=== PATIENT | male | born 1945 | race Caucasian/White ===

== ENCOUNTER → 2017-10-06 | Emergency (ER) | payer MEDICARE ==
[~2017-10-06] MED LIST: Acetaminophen 325 MG TAB ONE; Azithromycin 250 MG TAB ONE; Benzonatate 100 MG CAP ONE; Furosemide 40 MG/4 ML VIAL ONE; HYDROcodone/Acetaminophen 5/325 mg Tablet ONE
--- NOTE | 2017-10-06 18:48 | RAD ---
PORTABLE UPRIGHT FRONTAL CHEST RADIOGRAPH 10/06/17 COMPARISON: 08/09/14 HISTORY: Chest pain and dyspnea. FINDINGS: There is prominence of the cardiac silhouette. There is mild pulmonary vascular prominence. No pneumo thorax, pleural fluid, focal consolidation or alveolar edema. IMPRESSION: No focal consolidation or alveolar edema. POS: [facility]
[2017-10-06 18:52] LABS: Band 5 % (5-11); Eosinophils 2 % (0-10); Hemoglobin 15.8 g/dL (14.0-18.0); Lymphocytes 8 % (21-51); MDiff Complete? YES; Mean Corpuscular HGB CONC 31.9 g/dL (32.0-36.0); Mean Corpuscular Hemoglobin 28.5 pg (27.0-31.0); Mean Corpuscular Volume 89.1 fl (80.0-94.0); Mean Platelet Volume 5.7 fL (7.4-10.4); Monocytes 6 % (0-10); Neutrophil 79 % (42-75); PLT Morphology Comment Appears Adequate; Platelet Count 301 thou/uL (130-400); RBC Distribution Width 13.6 % (11.5-14.5); Red Blood Cell (RBC) Count 5.56 mill/uL (4.70-6.10); White Blood Cell (WBC) Count 17.4 thou/uL (4.8-10.8)
[2017-10-06 18:58] LABS: ALT (SGPT) 12 U/L (8-55); AST (SGOT) 20 U/L (5-34); Albumin 3.8 g/dL (3.4-4.8); Alkaline Phosphatase 69 U/L (40-150); Anion Gap 14 mmol/L (10-20); BUN (Urea Nitrogen) 20 mg/dL (8.4-25.7); Bilirubin, Total 0.8 mg/dL (0.2-1.2); Calc. Creatinine Clearance 0 mL/min (70-130); Calcium 10.3 mg/dL (7.8-10.44); Carbon Dioxide 28 mmol/L (23-31); Chloride 102 mmol/L (98-107); Estimated GFR-MDRD 61; Glucose 120 mg/dL (83-110); Magnesium 2.1 mg/dL (1.6-2.6); Potassium 4.1 mmol/L (3.5-5.1); Protein, Total 6.8 g/dL (5.8-8.1); Sodium 140 mmol/L (136-145)
[2017-10-06 19:00] LABS: CKMB 1.4 ng/mL (0-6.6); Troponin I Less than 0.010 ng/mL (< 0.028)
[2017-10-06 19:48] LABS: Bilirubin Negative (Negative); Blood, Urine Trace (Negative); Glucose, Urine (Dipstick) Negative (Negative); Leukocyte Negative (Negative); Nitrite Negative (Negative); Protein, Urine (Dipstick) Negative (Neg-Trace); Specific Gravity, Urine 1.015 (1.005-1.030)
[2017-10-06 19:49] LABS: Bacteria/HPF Rare-Few HPF (None Seen); Clarity Hazy (Clear); RBC/HPF 0-3 HPF (0-3); Squamous Epithelial 0-3 HPF (0-3); WBC/HPF None Seen HPF (0-3)
--- NOTE | 2017-10-06 20:21 | RAD ---
FRONTAL AND LATERAL IMAGING CHEST 10/06/17 COMPARISON: 12/10/09. HISTORY: Dyspnea. FINDINGS: Cardiac silhouette is prominent. No pneumothorax, pleural fluid, lobar consolidation or alveolar tyrell a. Mild increased interstitial density noted. IMPRESSION: Stable appearance of the chest as described above. POS: [facility]
== END ==
LOC: MADERS 18:00
DX: J06.9 Acute upper respiratory infection, unspecified (principal); I48.91 Unspecified atrial fibrillation; E78.5 Hyperlipidemia, unspecified; I11.0 Hypertensive heart disease with heart failure; I50.9 Heart failure, unspecified; M10.9 Gout, unspecified; I25.10 Atherosclerotic heart disease of native coronary artery without angina pectoris; Z79.899 Other long term (current) drug therapy; Z79.01 Long term (current) use of anticoagulants
CPT/HCPCS: 36415; 71045; 71046; 80053; 81003; 81015; 82553; 83605; 83735; 83880; 84484; 85025; 85730; 87040; 87086; 93005; 96374; J1940

== ENCOUNTER 2019-02-13 18:14 | Inpatient (IN) | payer MEDICARE ==
[2019-02-13] MEDS ORDERED: Acetaminophen 325 MG TAB PO PRN (20:44)
[2019-02-13] MEDS ORDERED: Nitroglycerin 0.4 MG TAB (25 Tab Bottle) SL PRN (20:48)
[2019-02-13] MEDS ORDERED: Albuterol Sulfate 2.5 mg/3 ml Neb NEB PRN (20:53)
[2019-02-13] MEDS ORDERED: Nystatin Powder 15 GM BOT TOP PRN (20:59)
[2019-02-13] MEDS ORDERED: Furosemide 40 MG TAB PO SCH (21:00)
[2019-02-13] MEDS: Doxycycline 100 MG CAP PO SCH (21:35)
[2019-02-13] MEDS: traMADol HCl 50 MG TAB PO PRN (21:35)
[2019-02-13] MEDS: Lisinopril 10 MG TAB PO SCH (21:35)
[2019-02-13] MEDS: Hydrochlorothiazide 25 MG TAB PO SCH (21:36)
[2019-02-13] MEDS: Carvedilol 6.25 MG TAB PO SCH (21:37)
[2019-02-14 06:47] LABS: #Basophils 0.1 thou/uL (0.0-0.2); #Eosinphils 0.1 thou/uL (0.0-0.7); #Lymphocytes 1.5 thou/uL (1.20-3.40); #Monocytes 0.5 thou/uL (0.11-0.59); %Basophils 0.7 % (0.0-1.0); %Eosinophils 0.7 % (0.0-10.0); %Lymphocytes 16.8 % (21.0-51.0); %Monocytes 5.9 % (0.0-10.0); %Neutrophils 75.9 % (42.0-75.0); Hemoglobin 12.3 g/dL (14.0-18.0); INR-International Normal Ratio 1.9; Mean Corpuscular HGB CONC 32.3 g/dL (32.0-36.0); Mean Corpuscular Hemoglobin 27.8 pg (27.0-31.0); Mean Corpuscular Volume 86.2 fL (78.0-98.0); Mean Platelet Volume 5.4 fL (7.4-10.4); Platelet Count 287 thou/uL (130-400); Prothrombin Time 21.7 SEC (12.0-14.7); RBC Distribution Width 15.1 % (11.5-14.5); Red Blood Cell (RBC) Count 4.42 mill/uL (4.70-6.10); White Blood Cell (WBC) Count 9.2 thou/uL (4.8-10.8)
[2019-02-14 06:55] LABS: ALT (SGPT) 70 U/L (8-55); AST (SGOT) 41 U/L (5-34); Albumin 2.8 g/dL (3.4-4.8); Alkaline Phosphatase 79 U/L (40-150); Anion Gap 11 mmol/L (10-20); BUN (Urea Nitrogen) 14 mg/dL (8.4-25.7); Bilirubin, Total 0.5 mg/dL (0.2-1.2); Calc. Creatinine Clearance 228 mL/min (70-130); Calcium 9.1 mg/dL (7.8-10.44); Carbon Dioxide 29 mmol/L (23-31); Chloride 106 mmol/L (98-107); Estimated GFR-MDRD Greater than 90; Globulin 3.3 g/dL (2.4-3.5); Glucose 118 mg/dL (83-110); Potassium 4.3 mmol/L (3.5-5.1); Protein, Total 6.1 g/dL (5.8-8.1); Sodium 142 mmol/L (136-145); Uric Acid 6.1 mg/dL (3.5-7.2)
[2019-02-14] MEDS ORDERED: Polyethylene Glycol 3350 17 GM Packet PO SCH (09:00)
[2019-02-14] MEDS ORDERED: SILDENAFIL 20 MG PO SCH (09:00)
[2019-02-14] MEDS ORDERED: EUCERIN CREME 57 GRAM TUBE TP PRN (09:58)
[2019-02-14] MEDS: Hydrochlorothiazide 25 MG TAB PO SCH ×2 (09:59→20:25)
[2019-02-14] MEDS: Carvedilol 6.25 MG TAB PO SCH ×2 (09:59→20:26)
[2019-02-14] MEDS: Potassium Chloride 20 MEQ TAB PO SCH ×2 (09:59→17:27)
[2019-02-14] MEDS: FLUoxetine HCl 20 MG CAP PO SCH (09:59)
[2019-02-14] MEDS: Doxycycline 100 MG CAP PO SCH ×2 (09:59→20:26)
[2019-02-14] MEDS: Furosemide 40 MG TAB PO SCH ×2 (10:00→17:27)
[2019-02-14] MEDS: Emollient 15 oz bottle 450 ML, Triamcinolone Acetonide 200 MG TOP SCH ×2 (10:00→20:27)
[2019-02-14] MEDS: Colchicine 0.6 MG TAB PO SCH (10:00)
[2019-02-14] MEDS: Lisinopril 10 MG TAB PO SCH ×2 (10:00→20:26)
[2019-02-14] MEDS: Aspirin Chewable 81 MG TAB PO SCH (10:00)
[2019-02-14] MEDS ORDERED: Polyethylene Glycol 3350 17 GM Packet PO PRN (11:18)
--- NOTE | 2019-02-14 12:36 | HP ---
CHIEF COMPLAINT: Generalized illness and severe deconditioning. HISTORY OF PRESENT ILLNESS: The patient is an obese 73-year-old white male, who lives at home with his . He has been independent of his ADLs. He has a history of chronic atrial fibrillation, chronic diastolic congestive heart failure, chronic edema, chronic venous stasis dermatitis, and obstructive sleep apnea. The patient had been hospitalized at [facility] from 02/03/2019 to 02/13/2019 with a sepsis syndrome that presented with a metabolic encephalopathy, fever, and shortness of breath. The etiology of this was not known. His blood cultures were negative except for gram-positive desmond that probably was a contaminant. He did have serologies drawn for Bartonella, which were negative. The serologies for Rickettsia and ehrlichia are pending. It is felt that he probably had some form of either bacterial or viral syndrome that created the sepsis-like picture along with metabolic encephalopathy. He gradually improved and he was treated with doxycycline. He was left extremely weak and had not been able to get up out of bed due to the weakness. He was transferred to [facility] on the evening of 02/13/2019 to [facility] for purpose of PT and OT in an effort to improve his general functional capability. He was discharged on doxycycline and also to remain on his CPAP. He had been on CPAP while in the hospital. When he came here, the family brought the CPAP from home, initially did not think this was functioning , but after working with this, it looked like it is functioning fine. The patient was seen early on the morning of 02/14/2019. He is very pleasant, was able to give me a good history, did not know a whole lot about exactly what had happened to him other than he had just been very sick and now it has left him extremely weak and has not been able to get up, but he was ready to get up and try to get back to his usual activities. At home, he is independent of his ADLs and drives his tractor. At night, he uses a CPAP. PAST HISTORY: Hospitalized at [facility] from 02/03/2019 to 2018 for sepsis syndrome, presenting with metabolic encephalopathy and fever and shortness of breath. Blood culture, gram-negative desmond, probably contaminant. Etiology of the sepsis is not known, possible viral or bacterial infection, but none identified. Discharged on doxycycline and improving but weak. The patient has a history of chronic atrial fibrillation, has undergone ablations for this, but he has remained in atrial fibrillation and is on anticoagulants. He has hypertension, morbid obesity, chronic diastolic heart failure, hyperlipidemia, and gout. He has had numerous abdominal surgeries including for bowel perforation. He has had umbilical hernia repair. He has depression. He is also on sildenafil, apparently for pulmonary hypertension. PRESENT MEDICINES: 1. Acetaminophen 325 mg two every 6 hours as needed. 2. Acetaminophen 500 mg at bedtime p.r.n. 3. Albuterol by nebulizer every 4 hours as needed. 4. Aspirin 81 mg daily. 5. Carvedilol 6.25 mg daily. 6. Colchicine 0.6 mg daily. 7. Diphenhydramine 25 mg at bedtime p.r.n. sleep. 8. Doxycycline 100 mg b.i.d. 9. Fluoxetine 20 mg daily. 10. Furosemide 40 mg b.i.d. 11. Lisinopril and hydrochlorothiazide 20/12.5 b.i.d. 12. Nitroglycerin 0.4 mg p.r.n. chest pain. 13. Sildenafil 20 mg daily.Never till start. Not taking. 14. Tramadol 50 mg b.i.d. as needed for pain. 15. Coumadin 6 mg daily. ALLERGIES: IODINE, IODINE CONTAINING PRODUCTS, AND PENICILLIN. REVIEW OF SYSTEMS: GENERAL: The patient said that he thinks his weight has been pretty stable. He does not think he has had any fever for the last few days. HEAD AND NECK: No complaints. PULMONARY: His breathing is doing better. He is not having any complaints at present. No cough. The patient has obstructive sleep apnea. He does have a CPAP that he uses. He has had this for many years. He says he does not put water in it, it makes his breathing worse. CARDIOVASCULAR: No chest pain. GI: No nausea or vomiting. He says his bowels have been sluggish, but the nurses report they did move last night. NEUROPSYCHIATRIC: No complaints. ADLs prior to this acute illness, he was independent of all his ADLs. HABITS: Alcohol, none. Tobacco, the patient said he smoked for a while, but stopped 40 years ago. SOCIAL HISTORY: The patient is , lives at home with his . CODE STATUS: Full code. PHYSICAL EXAMINATION: GENERAL: Shows a very pleasant 73-year-old white bearded male. He is alert, talkative, appears very comfortable and in no distress. VITAL SIGNS: His height is 6 feet and 2 inches. Weight is 384 pounds. His BMI calculated at 49. His O2 saturation is 98% on room air. HEENT: Head, normocephalic. Eyes; pupils are equal, round, and reactive. Ears , TMs are clear. Nose, normal. Mouth and throat, the patient is edentulous. He has dentures, but he said he lost these. NECK: Carotids have an irregular rhythm. There are no bruits. Thyroid not enlarged. LUNGS: Clear. HEART: The patient has an irregularly irregular rhythm. ABDOMEN: Soft. No organomegaly. No areas of tenderness. EXTREMITIES: The patient has chronic stasis changes to the lower extremities with a bluish discoloration and some dryness of the skin. He does have a little redness in the intergluteal crease. NEUROLOGIC: The patient is alert and oriented x3. He has a generalized weakness, but no focal weakness. IMPRESSION: 1. Severe generalized weakness and deconditioning: a. Secondary to recent hospitalization and acute illness. b. He was independent of all his ADLs prior to acute hospitalization. 2. Hospitalized at [facility] from 02/03/2019 to 2018 with a sepsis syndrome, presenting with fever and metabolic encephalopathy. Etiology not determined. Suspect underlying bacterial or viral syndrome, that is resolving. 3. Chronic atrial fibrillation: a. Status post ablation that failed. b. On chronic anticoagulation. 4. Hypertension: a. Controlled. 5. Morbid obesity. 6. Pulmonary hypertension. 7. Venous insufficiency of the lower extremities. 8. Chronic stasis dermatitis of the lower extremities. 9. Obstructive sleep apnea. 10. Chronic diastolic congestive heart failure. a. No evidence of acute congestive heart failure as of 02/14. 11. Gout. a. Presently asymptomatic as of 02/14. PLAN: The patient has been admitted to [facility] for purpose of physical therapy and OT. This will be in an effort to try to help improve his deconditioning and get him back to independent with his ADLs. We will continue his CPAP, continue his anticoagulants with Coumadin, and continue with doxycycline. Code status, full code. See orders. [facility] ID: [id number] [facility]
[2019-02-14] MEDS: Warfarin Sodium 2 MG TAB PO SCH (17:27)
[2019-02-15] MEDS: traMADol HCl 50 MG TAB PO PRN ×2 (05:57→15:35)
[2019-02-15] MEDS: Hydrochlorothiazide 25 MG TAB PO SCH ×2 (08:59→21:33)
[2019-02-15] MEDS: Doxycycline 100 MG CAP PO SCH ×2 (08:59→21:33)
[2019-02-15] MEDS: Potassium Chloride 20 MEQ TAB PO SCH ×2 (08:59→17:17)
[2019-02-15] MEDS: Colchicine 0.6 MG TAB PO SCH (08:59)
[2019-02-15] MEDS: FLUoxetine HCl 20 MG CAP PO SCH (08:59)
[2019-02-15] MEDS: Carvedilol 6.25 MG TAB PO SCH ×2 (08:59→21:32)
[2019-02-15] MEDS: Aspirin Chewable 81 MG TAB PO SCH (09:00)
[2019-02-15] MEDS: Lisinopril 10 MG TAB PO SCH ×2 (09:00→21:34)
[2019-02-15] MEDS: Furosemide 40 MG TAB PO SCH ×2 (09:00→17:17)
[2019-02-15] MEDS: Emollient 15 oz bottle 450 ML, Triamcinolone Acetonide 200 MG TOP SCH ×2 (09:01→21:38)
[2019-02-15] MEDS: Warfarin Sodium 2 MG TAB PO SCH (17:17)
[2019-02-16 06:39] LABS: #Basophils 0.1 thou/uL (0.0-0.2); #Eosinphils 0.1 thou/uL (0.0-0.7); #Lymphocytes 2.2 thou/uL (1.20-3.40); #Monocytes 0.8 thou/uL (0.11-0.59); #Neutrophils 6.7 thou/uL (1.40-6.50); %Basophils 0.6 % (0.0-1.0); %Eosinophils 0.8 % (0.0-10.0); %Lymphocytes 22.2 % (21.0-51.0); %Monocytes 7.9 % (0.0-10.0); %Neutrophils 68.5 % (42.0-75.0); Mean Corpuscular HGB CONC 31.6 g/dL (32.0-36.0); Mean Corpuscular Hemoglobin 27.5 pg (27.0-31.0); Mean Platelet Volume 5.5 fL (7.4-10.4); Platelet Count 286 thou/uL (130-400); RBC Distribution Width 15.6 % (11.5-14.5); Red Blood Cell (RBC) Count 4.73 mill/uL (4.70-6.10); White Blood Cell (WBC) Count 9.8 thou/uL (4.8-10.8)
[2019-02-16 06:44] LABS: INR-International Normal Ratio 1.5; Prothrombin Time 17.6 SEC (12.0-14.7)
[2019-02-16 06:48] LABS: Anion Gap 13 mmol/L (10-20); BUN (Urea Nitrogen) 25 mg/dL (8.4-25.7); Calc. Creatinine Clearance 160 mL/min (70-130); Calcium 9.6 mg/dL (7.8-10.44); Carbon Dioxide 31 mmol/L (23-31); Cardiac Risk 3.6 (Less than 4.5); Chloride 103 mmol/L (98-107); Cholesterol 150 mg/dl (< 200 Desired); Estimated GFR-MDRD 72; Glucose 110 mg/dL (83-110); HDL Cholesterol 42 mg/dL (>60 Neg Risk); LDL Cholesterol, Calculated 89 mg/dL; Potassium 4.3 mmol/L (3.5-5.1); Sodium 143 mmol/L (136-145); Triglycerides 95 mg/dL (Less than 150); Uric Acid 7.9 mg/dL (3.5-7.2)
[2019-02-16] MEDS: Colchicine 0.6 MG TAB PO SCH (09:26)
[2019-02-16] MEDS: Doxycycline 100 MG CAP PO SCH ×2 (09:26→20:42)
[2019-02-16] MEDS: Aspirin Chewable 81 MG TAB PO SCH (09:28)
[2019-02-16] MEDS: FLUoxetine HCl 20 MG CAP PO SCH (09:28)
[2019-02-16] MEDS: Hydrochlorothiazide 25 MG TAB PO SCH ×2 (09:28→20:42)
[2019-02-16] MEDS: Potassium Chloride 20 MEQ TAB PO SCH ×2 (09:28→17:37)
[2019-02-16] MEDS: Furosemide 40 MG TAB PO SCH ×2 (09:29→17:43)
[2019-02-16] MEDS: Carvedilol 6.25 MG TAB PO SCH ×2 (09:29→20:42)
[2019-02-16] MEDS: Lisinopril 10 MG TAB PO SCH ×2 (09:32→20:43)
[2019-02-16] MEDS: Emollient 15 oz bottle 450 ML, Triamcinolone Acetonide 200 MG TOP SCH ×2 (09:33→20:44)
--- NOTE | 2019-02-16 10:15 | PRG ---
DATE OF SERVICE: 02/15/2019 SUBJECTIVE: The patient said he feels better. He has been up in a large lounge chair and is very comfortable in this. He says he is not having any trouble with his breathing. He is just weak, but can tell he is making some progress. He is working with Physical Therapy, and yesterday, walked 12 feet twice 10 and 12 feet this morning. He requires a rolling walker and minimal assistance and moderate assistance with transfers. OBJECTIVE: GENERAL: The patient is sitting up in a lounge chair. He is alert, talkative, answers questions appropriately, appears in no distress. VITAL SIGNS: Temperature is 96.7, pulse 72, blood pressure 155/83, respirations 18, and O2 saturation 97% on room air. LUNGS: Clear. HEART: Regular rate. EXTREMITIES: 1+ edema and chronic stasis changes. ASSESSMENT: 1.Severe generalized weakness and deconditioning. a. Secondary to recent hospitalization and acute illness. b. He was independent of all his ADLs prior to acute hospitalization. c. Improved. Walking 10 to 15 feet with his rolling walker and assistance, requiring moderate assistance with transfers as of 02/15/2019. 2. Hospitalized at [facility] from 02/03/2019 to 2018 with a sepsis syndrome, presenting with fever and metabolic encephalopathy. Etiology not determined. Suspect underlying bacterial or viral syndrome, that is resolving. 3. Chronic atrial fibrillation: a. Status post ablation that failed. b. On chronic anticoagulation. 4. Hypertension: a. Controlled. 5. Morbid obesity. 6. Pulmonary hypertension. a. Stable. The patient previously had been given a prescription for sildenafil, but he never did fill this prescription and has never taken this. 7. Venous insufficiency of the lower extremities. 8. Chronic stasis dermatitis of the lower extremities. 9. Obstructive sleep apnea. 10. Chronic diastolic congestive heart failure. a. No evidence of acute congestive heart failure as of 02/15/2019. 11. Gout. a. Presently asymptomatic as of 02/15/2019. PLAN: Continue present care. Continue PT and OT. Job ID: [id number] [facility]
[2019-02-16] MEDS ORDERED: Mag-Al Plus 1200 MG/1200 MG/120 MG/30 ML UDCUP PO PRN (15:47)
[2019-02-16] MEDS: Warfarin Sodium 2.5 MG TAB PO SCH (17:37)
[2019-02-16] MEDS: Warfarin Sodium 5 MG TAB PO SCH (17:37)
[2019-02-16] MEDS: traMADol HCl 50 MG TAB PO PRN (20:41)
[2019-02-17 08:13] LABS: INR-International Normal Ratio 1.6; Prothrombin Time 18.7 SEC (12.0-14.7)
[2019-02-17] MEDS: Doxycycline 100 MG CAP PO SCH ×2 (08:59→20:17)
[2019-02-17] MEDS: Furosemide 40 MG TAB PO SCH (08:59)
[2019-02-17] MEDS: Hydrochlorothiazide 25 MG TAB PO SCH ×2 (08:59→20:17)
[2019-02-17] MEDS: Aspirin Chewable 81 MG TAB PO SCH (09:00)
[2019-02-17] MEDS: Lisinopril 10 MG TAB PO SCH ×2 (09:00→20:23)
[2019-02-17] MEDS: Potassium Chloride 20 MEQ TAB PO SCH ×2 (09:00→17:48)
[2019-02-17] MEDS: FLUoxetine HCl 20 MG CAP PO SCH (09:00)
[2019-02-17] MEDS: Carvedilol 6.25 MG TAB PO SCH ×2 (09:00→20:17)
[2019-02-17] MEDS: Colchicine 0.6 MG TAB PO SCH (09:00)
[2019-02-17] MEDS: Emollient 15 oz bottle 450 ML, Triamcinolone Acetonide 200 MG TOP SCH ×2 (09:00→20:23)
[2019-02-17] MEDS: Warfarin Sodium 2.5 MG TAB PO SCH (17:48)
[2019-02-17] MEDS: Warfarin Sodium 5 MG TAB PO SCH (17:48)
[2019-02-17] MEDS: traMADol HCl 50 MG TAB PO PRN (20:19)
[2019-02-18 08:13] LABS: INR-International Normal Ratio 1.9; Prothrombin Time 21.5 SEC (12.0-14.7)
[2019-02-18] MEDS: FLUoxetine HCl 20 MG CAP PO SCH (08:27)
[2019-02-18] MEDS: Colchicine 0.6 MG TAB PO SCH (08:27)
[2019-02-18] MEDS: Doxycycline 100 MG CAP PO SCH ×2 (08:27→20:54)
[2019-02-18] MEDS: Potassium Chloride 20 MEQ TAB PO SCH ×2 (08:27→17:46)
[2019-02-18] MEDS: Carvedilol 6.25 MG TAB PO SCH ×2 (08:27→20:54)
[2019-02-18] MEDS: Aspirin Chewable 81 MG TAB PO SCH (08:27)
[2019-02-18] MEDS: Lisinopril 10 MG TAB PO SCH ×2 (08:27→20:55)
[2019-02-18] MEDS: Hydrochlorothiazide 25 MG TAB PO SCH ×2 (08:27→20:55)
[2019-02-18] MEDS: Furosemide 40 MG TAB PO SCH (08:28)
[2019-02-18] MEDS: Emollient 15 oz bottle 450 ML, Triamcinolone Acetonide 200 MG TOP SCH ×2 (08:28→20:55)
[2019-02-18] MEDS: Warfarin Sodium 2.5 MG TAB PO SCH (17:46)
[2019-02-18] MEDS: Warfarin Sodium 5 MG TAB PO SCH (17:47)
[2019-02-18] MEDS: traMADol HCl 50 MG TAB PO PRN (20:56)
[2019-02-18] MEDS: Acetaminophen 500 MG TAB PO PRN (22:58)
[2019-02-18] MEDS: diphenhydrAMINE 25 MG CAP PO PRN (22:59)
[2019-02-19 05:18] LABS: Prothrombin Time 22.3 SEC (12.0-14.7)
[2019-02-19] MEDS: Lisinopril 10 MG TAB PO SCH ×2 (08:42→21:00)
[2019-02-19] MEDS: Aspirin Chewable 81 MG TAB PO SCH (08:43)
[2019-02-19] MEDS: Potassium Chloride 20 MEQ TAB PO SCH ×2 (08:43→17:12)
[2019-02-19] MEDS: Furosemide 40 MG TAB PO SCH (08:43)
[2019-02-19] MEDS: Doxycycline 100 MG CAP PO SCH ×2 (08:43→20:59)
[2019-02-19] MEDS: FLUoxetine HCl 20 MG CAP PO SCH (08:43)
[2019-02-19] MEDS: Colchicine 0.6 MG TAB PO SCH (08:43)
[2019-02-19] MEDS: Hydrochlorothiazide 25 MG TAB PO SCH ×2 (08:44→20:59)
[2019-02-19] MEDS: Carvedilol 6.25 MG TAB PO SCH ×2 (08:45→21:00)
[2019-02-19] MEDS: Emollient 15 oz bottle 450 ML, Triamcinolone Acetonide 200 MG TOP SCH ×2 (08:49→21:04)
--- NOTE | 2019-02-19 12:28 | PRG ---
DATE OF SERVICE: 02/19/2019 SUBJECTIVE: The patient thinks he is doing well. He was in his lounge chair with his legs elevated with his CPAP on, and he has his knee-high support hose on from home that are at moderate pressure. He says at home, he sleeps in the lounge chair. He has no complaint this morning. OBJECTIVE: GENERAL: The patient is alert, appears comfortable, in no distress. VITAL SIGNS: His temp is 97.3, pulse 79, blood pressure 124/58, respirations 18 , O2 saturation 97% on room air. LUNGS: Clear. HEART: Regular rate. EXTREMITIES: The patient is wearing his moderate pressure knee-high support hose. The swelling is much better in these. ASSESSMENT: 1. Severe generalized weakness and deconditioning. a. Secondary to recent hospitalization and acute illness. b. He was independent of all his ADLs prior to acute hospitalization. c. Improved. Walking a little further with his rolling walker and assistance. Still requires assistance with transfers as of 02/19/2019. 2. Hospitalized at [facility] from 02/03/2019 to 2018 with a sepsis syndrome, presenting with fever and metabolic encephalopathy. Etiology not determined. Suspect underlying bacterial or viral syndrome, that is resolving. 3. Chronic atrial fibrillation: a. Status post ablation that failed. b. On chronic anticoagulation. 4. Hypertension: a. Controlled. 5. Morbid obesity. 6. Pulmonary hypertension. a. Stable. The patient previously had been given a prescription for sildenafil , but he never did fill this prescription and has never taken this. 7. Venous insufficiency of the lower extremities. a. Controlled with the use of moderate pressure knee-high support hose. 8. Chronic stasis dermatitis of the lower extremities. 9. Obstructive sleep apnea. 10. Chronic diastolic congestive heart failure. a. No evidence of acute congestive heart failure as of 02/19/2019. 11. Gout. a. Asymptomatic. PLAN: Continue present care. Continue PT and OT. Job ID: [id number] [facility]
--- NOTE | 2019-02-19 12:30 | PRG ---
DATE OF SERVICE: 02/17/2019 SUBJECTIVE: The patient said he is doing a lot better. He feels better. He was having a lot of leg cramps, on furosemide 40 mg twice a day. He says at home he only uses this once a day and he only rarely has a leg cramps. When he does get them, he drinks a little pickle juice and this works great, therefore relieved. At home, he has a problem with a chronic venous insufficiency and he says he has some knee-high support hose that he wears. He is feeling better. Yesterday, he walked 30 feet on 2 occasions with physical therapy using a rolling walker and required some moderate assistance with transfers. OBJECTIVE: GENERAL: The patient is sitting up in a large lounge chair with his feet on the floor. He looks very comfortable. He is talkative, appears in no distress. VITAL SIGNS: His temp is 97.8; pulse 82; respirations 18; O2 saturation 97% on room air; blood pressure 166/72, earlier pressure 124/58. Weight is stable at 384. EXTREMITIES: His lower extremities have 1 to 2+ edema with chronic stasis changes with the skin having a chronic bluish hue. ASSESSMENT: 1.Severe generalized weakness and deconditioning. a. Secondary to recent hospitalization and acute illness. b. He was independent of all his ADLs prior to acute hospitalization. c. Improved. Walking up to 30 feet with a rolling walker. Requires moderate assistance with any transfers as of 02/17/2019. 2. Hospitalized at [facility] from 02/03/2019 to 2018 with a sepsis syndrome, presenting with fever and metabolic encephalopathy. Etiology not determined. Suspect underlying bacterial or viral syndrome, that is resolving. 3. Chronic atrial fibrillation: a. Status post ablation that failed. b. On chronic anticoagulation. c. Stable, rate controlled as of 02/17/2019. 4. Hypertension: a. Controlled. 5. Morbid obesity. 6. Pulmonary hypertension. a. Stable. The patient previously had been given a prescription for sildenafil, but he never did fill this prescription and has never taken this. 7. Venous insufficiency of the lower extremities. 8. Chronic stasis dermatitis of the lower extremities. 9. Obstructive sleep apnea. 10. Chronic diastolic congestive heart failure. a. No evidence of acute congestive heart failure as of 02/17/2019. 11. Gout. a. Presently asymptomatic as of 02/15/2019. PLAN: Continue present care. We will have patient's family bring his knee-high support hose and wear these when he is out of bed. Continue PT and OT. Job ID: [id number] [facility]
[2019-02-19] MEDS: Warfarin Sodium 5 MG TAB PO SCH (17:12)
[2019-02-19] MEDS: Warfarin Sodium 2.5 MG TAB PO SCH (17:12)
[2019-02-19] MEDS: Acetaminophen 500 MG TAB PO PRN (20:58)
[2019-02-19] MEDS: traMADol HCl 50 MG TAB PO PRN (20:58)
[2019-02-19] MEDS: diphenhydrAMINE 25 MG CAP PO PRN (21:00)
[2019-02-20 05:27] LABS: INR-International Normal Ratio 2.3; Prothrombin Time 24.9 SEC (12.0-14.7)
[2019-02-20] MEDS: Doxycycline 100 MG CAP PO SCH ×2 (09:09→20:34)
[2019-02-20] MEDS: Lisinopril 10 MG TAB PO SCH ×2 (09:09→20:34)
[2019-02-20] MEDS: Potassium Chloride 20 MEQ TAB PO SCH ×2 (09:10→17:18)
[2019-02-20] MEDS: Hydrochlorothiazide 25 MG TAB PO SCH ×2 (09:10→20:34)
[2019-02-20] MEDS: Colchicine 0.6 MG TAB PO SCH (09:11)
[2019-02-20] MEDS: Aspirin Chewable 81 MG TAB PO SCH (09:11)
[2019-02-20] MEDS: FLUoxetine HCl 20 MG CAP PO SCH (09:11)
[2019-02-20] MEDS: Emollient 15 oz bottle 450 ML, Triamcinolone Acetonide 200 MG TOP SCH ×2 (09:11→20:40)
[2019-02-20] MEDS: Furosemide 40 MG TAB PO SCH (09:11)
[2019-02-20] MEDS: Carvedilol 6.25 MG TAB PO SCH ×2 (09:11→20:34)
[2019-02-20] MEDS: Warfarin Sodium 2.5 MG TAB PO SCH (17:18)
[2019-02-20] MEDS: Warfarin Sodium 5 MG TAB PO SCH (17:18)
[2019-02-20] MEDS: traMADol HCl 50 MG TAB PO PRN (20:34)
[2019-02-20] MEDS: Acetaminophen 500 MG TAB PO PRN (20:39)
[2019-02-20] MEDS: diphenhydrAMINE 25 MG CAP PO PRN (20:39)
[2019-02-21 07:11] LABS: INR-International Normal Ratio 2.3; Prothrombin Time 25.1 SEC (12.0-14.7)
[2019-02-21] MEDS: Carvedilol 6.25 MG TAB PO SCH ×2 (08:54→21:15)
[2019-02-21] MEDS: Colchicine 0.6 MG TAB PO SCH (08:54)
[2019-02-21] MEDS: Doxycycline 100 MG CAP PO SCH ×2 (08:54→21:15)
[2019-02-21] MEDS: Lisinopril 10 MG TAB PO SCH ×2 (08:54→21:17)
[2019-02-21] MEDS: Potassium Chloride 20 MEQ TAB PO SCH ×2 (08:54→17:11)
[2019-02-21] MEDS: Emollient 15 oz bottle 450 ML, Triamcinolone Acetonide 200 MG TOP SCH ×2 (08:55→21:22)
[2019-02-21] MEDS: Aspirin Chewable 81 MG TAB PO SCH (08:55)
[2019-02-21] MEDS: Furosemide 40 MG TAB PO SCH (08:55)
[2019-02-21] MEDS: FLUoxetine HCl 20 MG CAP PO SCH (08:55)
[2019-02-21] MEDS: Hydrochlorothiazide 25 MG TAB PO SCH ×2 (08:55→21:16)
--- NOTE | 2019-02-21 09:10 | PRG ---
DATE OF SERVICE: 02/20/2019 SUBJECTIVE: The patient said he is doing well. He is not having any trouble with his breathing. He slept good last night and used his CPAP. He has walked 60 feet this morning twice with a rolling walker and just minimal assist. He is still requiring some moderate assistance with transfers. OBJECTIVE: GENERAL: The patient is sitting up in a chair. He is alert, appears comfortable, and in no distress. He answers questions appropriately. VITAL SIGNS: Temp 96.8, pulse 66, blood pressure 111/55, respirations are 20, O2 saturation 99% on room air, blood pressure 111/55. LUNGS: Clear. HEART: Regular rate. EXTREMITIES: His lower extremities, he has his moderate pressure knee-high support hose on with excellent control of the swelling. ASSESSMENT: 1.Severe generalized weakness and deconditioning. a. Secondary to recent hospitalization and acute illness. b. He was independent of all his ADLs prior to acute hospitalization. c. Improved. Walking up to 60 feet several times a day with a rolling walker and minimal assistance. Still requiring moderate assistance with transfers as of 02/20/2019. 2. Hospitalized at [facility] from 02/03/2019 to 2018 with a sepsis syndrome, presenting with fever and metabolic encephalopathy. Etiology not determined. Suspect underlying bacterial or viral syndrome, that is resolving. 3. Chronic atrial fibrillation: a. Status post ablation that failed. b. On chronic anticoagulation. 4. Hypertension: a. Controlled. 5. Morbid obesity. 6. Pulmonary hypertension. a. Stable. The patient previously had been given a prescription for sildenafil, but he never did fill this prescription and has never taken this. 7. Venous insufficiency of the lower extremities. a. Controlled with the use of moderate pressure knee-high support hose. 8. Chronic stasis dermatitis of the lower extremities. 9. Obstructive sleep apnea. 10. Chronic diastolic congestive heart failure. a. No evidence of acute congestive heart failure as of 02/20/2019. 11. Gout. a. Asymptomatic. PLAN: The patient continues to improve. Continue present care. Continue PT and OT. Job ID: [id number] [facility]
--- NOTE | 2019-02-21 11:26 | PRG ---
DATE OF SERVICE: 02/21/2019 SUBJECTIVE: The patient said he is doing good. He is having no trouble with his breathing. He does get a little winded after walking a while has to rest, but this was like this prior to his hospitalization. He is using his CPAP and wearing his knee-high support hose. He is walking up to about 50 feet and then has to rest and can go further. OBJECTIVE: GENERAL: The patient is sitting on a little couch after walking about 60 feet. He is alert, appears very comfortable, in no distress. VITAL SIGNS: Temperature 96.4, pulse 80, respirations 16, O2 saturation 95% on room air, blood pressure 111/58. LUNGS: Clear. HEART: Regular rate. EXTREMITIES: Lower extremities, the patient has his knee-high moderate pressure support hose on, and the swelling seems to be well controlled. ASSESSMENT: 1.Severe generalized weakness and deconditioning. a. Secondary to recent hospitalization and acute illness. b. He was independent of all his ADLs prior to acute hospitalization. c. Improved. Walking up to about 50 feet with a rolling walker and standby assistance. Transfers are improving. Still needs a little help as of 05/2019. 2. Hospitalized at [facility] from 02/03/2019 to 2018 with a sepsis syndrome, presenting with fever and metabolic encephalopathy. Etiology not determined. Suspect underlying bacterial or viral syndrome, that is resolving. 3. Chronic atrial fibrillation: a. Status post ablation that failed. b. On chronic anticoagulation. 4. Hypertension: a. Controlled. 5. Morbid obesity. 6. Pulmonary hypertension. a. Stable. The patient previously had been given a prescription for sildenafil, but he never did fill this prescription and has never taken this. 7. Venous insufficiency of the lower extremities. a. Controlled with the use of moderate pressure knee-high support hose. 8. Chronic stasis dermatitis of the lower extremities. 9. Obstructive sleep apnea. 10. Chronic diastolic congestive heart failure. a. No evidence of acute congestive heart failure as of 02/21/2019. 11. Gout. a. Asymptomatic. PLAN: Continue present care. Continue PT/OT. Continue CPAP. Job ID: [id number] [facility]
[2019-02-21] MEDS: Warfarin Sodium 2.5 MG TAB PO SCH (17:11)
[2019-02-21] MEDS: Warfarin Sodium 5 MG TAB PO SCH (17:11)
[2019-02-21] MEDS: diphenhydrAMINE 25 MG CAP PO PRN (21:18)
[2019-02-21] MEDS: Acetaminophen 500 MG TAB PO PRN (21:18)
[2019-02-22 05:15] LABS: INR-International Normal Ratio 2.1; Prothrombin Time 23.1 SEC (12.0-14.7)
[2019-02-22] MEDS: Doxycycline 100 MG CAP PO SCH ×2 (09:11→21:04)
[2019-02-22] MEDS: Carvedilol 6.25 MG TAB PO SCH ×2 (09:11→21:03)
[2019-02-22] MEDS: Potassium Chloride 20 MEQ TAB PO SCH ×2 (09:11→16:29)
[2019-02-22] MEDS: FLUoxetine HCl 20 MG CAP PO SCH (09:11)
[2019-02-22] MEDS: Lisinopril 10 MG TAB PO SCH ×2 (09:12→21:05)
[2019-02-22] MEDS: Furosemide 40 MG TAB PO SCH (09:12)
[2019-02-22] MEDS: Hydrochlorothiazide 25 MG TAB PO SCH ×2 (09:12→21:05)
[2019-02-22] MEDS: Aspirin Chewable 81 MG TAB PO SCH (09:12)
[2019-02-22] MEDS: Colchicine 0.6 MG TAB PO SCH (09:12)
[2019-02-22] MEDS: Emollient 15 oz bottle 450 ML, Triamcinolone Acetonide 200 MG TOP SCH ×2 (09:13→21:06)
--- NOTE | 2019-02-22 11:42 | PRG ---
DATE OF SERVICE: 02/22/2019 SUBJECTIVE: The patient said that he is doing better. He is making advancement with his physical therapy. He is not having any trouble breathing. The patient is sitting up in his chair. He is wearing the MAC hose knee high, which he said feels good and seemed to be helping with control of the swelling. OBJECTIVE: GENERAL: The patient is alert, appears very comfortable, in no distress. VITAL SIGNS: His temperature 97.8, pulse 60, respirations 18, O2 saturation 95 % on room air, and blood pressure 107/53. LUNGS: Clear. HEART: Regular rate. EXTREMITIES: There is trace edema. He is wearing the knee-high MAC hose. ASSESSMENT: 1.Severe generalized weakness and deconditioning. a. Secondary to recent hospitalization and acute illness. b. He was independent of all his ADLs prior to acute hospitalization. c. Improved. Walking up to about 50 feet with a rolling walker and standby assistance. Transfers are improving. Still needs a little help as of 06/2019. 2. Hospitalized at [facility] from 02/03/2019 to 2018 with a sepsis syndrome, presenting with fever and metabolic encephalopathy. Etiology not determined. Suspect underlying bacterial or viral syndrome, that is resolving. 3. Chronic atrial fibrillation: a. Status post ablation that failed. b. On chronic anticoagulation. 4. Hypertension: a. Controlled. 5. Morbid obesity. 6. Pulmonary hypertension. a. Stable. The patient previously had been given a prescription for sildenafil, but he never did fill this prescription and has never taken this. 7. Venous insufficiency of the lower extremities. a. Controlled with the use of moderate pressure knee-high support hose. 8. Chronic stasis dermatitis of the lower extremities. 9. Obstructive sleep apnea. 10. Chronic diastolic congestive heart failure. a. No evidence of acute congestive heart failure as of 02/21/2019. 11. Gout. a. Asymptomatic. PLAN: Continue PT/OT. Job ID: [id number] [facility]
[2019-02-22] MEDS: Warfarin Sodium 2.5 MG TAB PO SCH (16:29)
[2019-02-22] MEDS: Warfarin Sodium 5 MG TAB PO SCH (16:29)
[2019-02-22] MEDS: traMADol HCl 50 MG TAB PO PRN (21:06)
[2019-02-22] MEDS: Acetaminophen 500 MG TAB PO PRN (21:06)
[2019-02-22] MEDS: diphenhydrAMINE 25 MG CAP PO PRN (21:06)
[2019-02-23] MEDS: Potassium Chloride 20 MEQ TAB PO SCH ×2 (09:01→17:05)
[2019-02-23] MEDS: Carvedilol 6.25 MG TAB PO SCH ×2 (09:01→20:29)
[2019-02-23] MEDS: Aspirin Chewable 81 MG TAB PO SCH (09:01)
[2019-02-23] MEDS: Colchicine 0.6 MG TAB PO SCH (09:01)
[2019-02-23] MEDS: Hydrochlorothiazide 25 MG TAB PO SCH ×2 (09:01→20:28)
[2019-02-23] MEDS: FLUoxetine HCl 20 MG CAP PO SCH (09:01)
[2019-02-23] MEDS: Emollient 15 oz bottle 450 ML, Triamcinolone Acetonide 200 MG TOP SCH ×2 (09:02→20:29)
[2019-02-23] MEDS: Doxycycline 100 MG CAP PO SCH (09:02)
[2019-02-23] MEDS: Lisinopril 10 MG TAB PO SCH ×2 (09:02→20:29)
[2019-02-23] MEDS: Furosemide 40 MG TAB PO SCH (09:02)
[2019-02-23 10:06] VITALS: BMI 47.4
--- NOTE | 2019-02-23 12:10 | PRG ---
DATE OF SERVICE: 02/23/2019 SUBJECTIVE: The patient says he is doing better. He is making further progress with physical therapy. He is getting up easier. He is walking up to 65 feet at least three times a day. Transfers are still requiring some moderate assistance. OBJECTIVE: GENERAL: The patient is sitting up in a bedside chair. He is alert , talkative, looks very comfortable. He is wearing his knee-high support hose that is helping to control his swelling. VITAL SIGNS: Temperature 96.7, pulse 74, respirations 20, O2 saturation 99% on room air, and blood pressure 124/60. LUNGS: Clear. HEART: Regular rate. EXTREMITIES: There is mild edema with the support hose on, but overall well controlled with these hose. ASSESSMENT: 1.Severe generalized weakness and deconditioning. a. Secondary to recent hospitalization and acute illness. b. He was independent of all his ADLs prior to acute hospitalization. c. Improved. Walking up to 65 feet with a rolling walker three times a day. Transfer is still requiring moderate assistance as of 02/23/2019. 2. Hospitalized at [facility] from 02/03/2019 to 2018 with a sepsis syndrome, presenting with fever and metabolic encephalopathy. Etiology not determined. Suspect underlying bacterial or viral syndrome, that is resolving. 3. Chronic atrial fibrillation: a. Status post ablation that failed. b. On chronic anticoagulation. 4. Hypertension: a. Controlled. 5. Morbid obesity. 6. Pulmonary hypertension. a. Stable. The patient previously had been given a prescription for sildenafil, but he never did fill this prescription and has never taken this. 7. Venous insufficiency of the lower extremities. a. Controlled with the use of moderate pressure knee-high support hose. 8. Chronic stasis dermatitis of the lower extremities. 9. Obstructive sleep apnea. 10. Chronic diastolic congestive heart failure. a. No evidence of acute congestive heart failure as of 02/23/2019. 11. Gout. a. Asymptomatic. PLAN: Continue present care. Continue PT/OT. Job ID: [id number] MTDD
[2019-02-23] MEDS: Warfarin Sodium 5 MG TAB PO SCH (17:05)
[2019-02-23] MEDS: Warfarin Sodium 2.5 MG TAB PO SCH (17:05)
[2019-02-23] MEDS: traMADol HCl 50 MG TAB PO PRN (20:26)
[2019-02-23] MEDS: diphenhydrAMINE 25 MG CAP PO PRN (20:28)
[2019-02-23] MEDS: Acetaminophen 500 MG TAB PO PRN (20:28)
[2019-02-24] MEDS: Potassium Chloride 20 MEQ TAB PO SCH ×2 (08:32→17:13)
[2019-02-24] MEDS: Colchicine 0.6 MG TAB PO SCH (08:32)
[2019-02-24] MEDS: FLUoxetine HCl 20 MG CAP PO SCH (08:32)
[2019-02-24] MEDS: Hydrochlorothiazide 25 MG TAB PO SCH ×2 (08:32→20:27)
[2019-02-24] MEDS: Carvedilol 6.25 MG TAB PO SCH ×2 (08:32→20:26)
[2019-02-24] MEDS: traMADol HCl 50 MG TAB PO PRN ×2 (08:33→20:25)
[2019-02-24] MEDS: Aspirin Chewable 81 MG TAB PO SCH (08:33)
[2019-02-24] MEDS: Emollient 15 oz bottle 450 ML, Triamcinolone Acetonide 200 MG TOP SCH ×2 (08:34→20:27)
[2019-02-24] MEDS: Furosemide 40 MG TAB PO SCH (08:34)
[2019-02-24] MEDS: Lisinopril 10 MG TAB PO SCH ×2 (08:34→20:26)
[2019-02-24] MEDS: Warfarin Sodium 2.5 MG TAB PO SCH (17:13)
[2019-02-24] MEDS: Warfarin Sodium 5 MG TAB PO SCH (17:13)
[2019-02-24] MEDS: diphenhydrAMINE 25 MG CAP PO PRN (20:27)
[2019-02-24] MEDS: Acetaminophen 500 MG TAB PO PRN (20:30)
[2019-02-25] MEDS: Potassium Chloride 20 MEQ TAB PO SCH ×2 (09:32→17:26)
[2019-02-25] MEDS: Furosemide 40 MG TAB PO SCH (09:32)
[2019-02-25] MEDS: Carvedilol 6.25 MG TAB PO SCH ×2 (09:32→20:35)
[2019-02-25] MEDS: Aspirin Chewable 81 MG TAB PO SCH (09:32)
[2019-02-25] MEDS: FLUoxetine HCl 20 MG CAP PO SCH (09:32)
[2019-02-25] MEDS: Hydrochlorothiazide 25 MG TAB PO SCH ×2 (09:32→20:34)
[2019-02-25] MEDS: Lisinopril 10 MG TAB PO SCH ×2 (09:33→20:33)
[2019-02-25] MEDS: Colchicine 0.6 MG TAB PO SCH (09:33)
[2019-02-25] MEDS: traMADol HCl 50 MG TAB PO PRN ×2 (09:33→20:31)
[2019-02-25] MEDS: Emollient 15 oz bottle 450 ML, Triamcinolone Acetonide 200 MG TOP SCH ×2 (09:34→20:35)
[2019-02-25] MEDS: Warfarin Sodium 2.5 MG TAB PO SCH (17:27)
[2019-02-25] MEDS: Warfarin Sodium 5 MG TAB PO SCH (17:27)
[2019-02-25] MEDS: Acetaminophen 500 MG TAB PO PRN (20:31)
[2019-02-25] MEDS: diphenhydrAMINE 25 MG CAP PO PRN (20:32)
[2019-02-26 05:27] LABS: INR-International Normal Ratio 2.9; Prothrombin Time 29.9 SEC (12.0-14.7)
[2019-02-26] MEDS: Carvedilol 6.25 MG TAB PO SCH ×2 (08:27→21:27)
[2019-02-26] MEDS: Potassium Chloride 20 MEQ TAB PO SCH ×2 (08:27→17:27)
[2019-02-26] MEDS: Lisinopril 10 MG TAB PO SCH ×2 (08:27→21:32)
[2019-02-26] MEDS: Hydrochlorothiazide 25 MG TAB PO SCH ×2 (08:27→21:32)
[2019-02-26] MEDS: Aspirin Chewable 81 MG TAB PO SCH (08:27)
[2019-02-26] MEDS: Emollient 15 oz bottle 450 ML, Triamcinolone Acetonide 200 MG TOP SCH ×2 (08:28→21:42)
[2019-02-26] MEDS: FLUoxetine HCl 20 MG CAP PO SCH (08:28)
[2019-02-26] MEDS: Furosemide 40 MG TAB PO SCH (08:28)
[2019-02-26] MEDS: Colchicine 0.6 MG TAB PO SCH (08:28)
--- NOTE | 2019-02-26 08:33 | PRG ---
DATE OF SERVICE: 02/24/2019 SUBJECTIVE: The patient said he is doing well. He is making progress with his therapy. His breathing has been doing good. He is wearing his support hose and it does help with control of the swelling. OBJECTIVE: GENERAL: The patient is sitting up in his lounge chair. He is alert and talkative, appears very comfortable, and in no distress. VITAL SIGNS: His temperature is 96.5, pulse 74, respirations 20, O2 saturation 99% on room air, blood pressure 124/60. His weight is stable at 369. LUNGS: Clear. HEART: Regular rate. EXTREMITIES: Lower extremities, the patient is wearing his knee-high support hose, just trace edema in the legs. Edema controlled well with these stockings. ASSESSMENT: 1.Severe generalized weakness and deconditioning. a. Secondary to recent hospitalization and acute illness. b. He was independent of all his ADLs prior to acute hospitalization. c. Improved. Walking up to 65 feet with a rolling walker three times a day. Transfer is still requiring moderate assistance as of 02/24/2019. 2. Hospitalized at [facility] from 02/03/2019 to 2018 with a sepsis syndrome, presenting with fever and metabolic encephalopathy. Etiology not determined. Suspect underlying bacterial or viral syndrome, that is resolving. 3. Chronic atrial fibrillation: a. Status post ablation that failed. b. On chronic anticoagulation. 4. Hypertension: a. Controlled. 5. Morbid obesity. 6. Pulmonary hypertension. a. Stable. The patient previously had been given a prescription for sildenafil, but he never did fill this prescription and has never taken this. 7. Venous insufficiency of the lower extremities. a. Controlled with the use of moderate pressure knee-high support hose. 8. Chronic stasis dermatitis of the lower extremities. 9. Obstructive sleep apnea. 10. Chronic diastolic congestive heart failure. a. No evidence of acute congestive heart failure as of 02/23/2019. 11. Gout. a. Asymptomatic. PLAN: Continue present care. Continue PT and OT. Job ID: [id number] MTDD
--- NOTE | 2019-02-26 12:30 | PRG ---
DATE OF SERVICE: 02/26/2019 SUBJECTIVE: The patient said he is doing better. He is walking up to 65 feet with a rolling walker. He is transferring better. He has no complaint. Physical Therapy is happy with his progress. OBJECTIVE: GENERAL: The patient is sitting up in a chair. He is alert, talkative, appears comfortable, in no distress. VITAL SIGNS: His temperature is 96.9, pulse 78, respirations 20, O2 saturation 98% on room air, blood pressure 113/65. LUNGS: Clear. HEART: Regular rate. EXTREMITIES: Trace edema. The patient is wearing his knee-high support hose. ASSESSMENT: 1.Severe generalized weakness and deconditioning. a. Secondary to recent hospitalization and acute illness. b. He was independent of all his ADLs prior to acute hospitalization. c. Improved. Walking up to 65 feet with a rolling walker several times a day. Transferring easier with minimal assistance as of 02/26/2019. 2. Hospitalized at [facility] from 02/03/2019 to 2018 with a sepsis syndrome, presenting with fever and metabolic encephalopathy. Etiology not determined. Suspect underlying bacterial or viral syndrome, that is resolving. 3. Chronic atrial fibrillation: a. Status post ablation that failed. b. On chronic anticoagulation. 4. Hypertension: a. Controlled. 5. Morbid obesity. 6. Pulmonary hypertension. a. Stable. The patient previously had been given a prescription for sildenafil, but he never did fill this prescription and has never taken this. 7. Venous insufficiency of the lower extremities. a. Controlled with the use of moderate pressure knee-high support hose. 8. Chronic stasis dermatitis of the lower extremities. 9. Obstructive sleep apnea. 10. Chronic diastolic congestive heart failure. a. No evidence of acute congestive heart failure as of 02/26/2019. 11. Gout. a. Asymptomatic. PLAN: Continue present care. Continue PT. If does well, we will try to plan on a discharge for the patient on 03/02/2019. Job ID: [id number] MTDD
[2019-02-26] MEDS: Warfarin Sodium 5 MG TAB PO SCH (17:27)
[2019-02-26] MEDS: Warfarin Sodium 2.5 MG TAB PO SCH (17:27)
[2019-02-26] MEDS: diphenhydrAMINE 25 MG CAP PO PRN (21:33)
[2019-02-26] MEDS: Acetaminophen 500 MG TAB PO PRN (21:33)
[2019-02-26] MEDS: traMADol HCl 50 MG TAB PO PRN (21:37)
[2019-02-27 05:23] LABS: INR-International Normal Ratio 3.1; Prothrombin Time 31.8 SEC (12.0-14.7)
[2019-02-27] MEDS: Furosemide 40 MG TAB PO SCH (08:38)
[2019-02-27] MEDS: Aspirin Chewable 81 MG TAB PO SCH (08:38)
[2019-02-27] MEDS: Colchicine 0.6 MG TAB PO SCH (08:38)
[2019-02-27] MEDS: FLUoxetine HCl 20 MG CAP PO SCH (08:38)
[2019-02-27] MEDS: Potassium Chloride 20 MEQ TAB PO SCH ×2 (08:38→17:06)
[2019-02-27] MEDS: Lisinopril 10 MG TAB PO SCH ×2 (08:39→20:39)
[2019-02-27] MEDS: Hydrochlorothiazide 25 MG TAB PO SCH ×2 (08:39→20:39)
[2019-02-27] MEDS: Carvedilol 6.25 MG TAB PO SCH ×2 (08:40→20:40)
[2019-02-27] MEDS: Emollient 15 oz bottle 450 ML, Triamcinolone Acetonide 200 MG TOP SCH ×2 (08:40→20:41)
--- NOTE | 2019-02-27 10:23 | PRG ---
DATE OF SERVICE: 02/27/2019 SUBJECTIVE: The patient says he is doing good. He says his strength is better. He is not having any trouble with his breathing. He is walking up to 45 to 80 feet 3 or 4 times a day with a rolling walker and standby sales operations assistant. He requires minimum to moderate assistance with transferring from sitting to standing position. OBJECTIVE: GENERAL: The patient is sitting up in a chair. He is alert, talkative, appears very comfortable, in no distress. VITAL SIGNS: Temperature 97.9, pulse 72, respirations 16, O2 saturation 96% on room air, and blood pressure 112/59. LUNGS: Clear. HEART: Regular rate. EXTREMITIES: Edema, just very mild and controlled with his knee-high support hose. ASSESSMENT: 1.Severe generalized weakness and deconditioning. a. Secondary to recent hospitalization and acute illness. b. He was independent of all his ADLs prior to acute hospitalization. c. Improved. Walking up to 45 to 80 feet with a rolling walker several times a day, transferring easier as of 02/27/2019. Walking up to 65 feet with a rolling walker several times a day. Transferring easier with minimal assistance as of 02/26/2019. 2. Hospitalized at [facility] from 02/03/2019 to 2018 with a sepsis syndrome, presenting with fever and metabolic encephalopathy. Etiology not determined. Suspect underlying bacterial or viral syndrome, that has resolved. 3. Chronic atrial fibrillation: a. Status post ablation that failed. b. On chronic anticoagulation. 4. Hypertension: a. Controlled. 5. Morbid obesity. 6. Pulmonary hypertension. a. Stable. The patient previously had been given a prescription for sildenafil, but he never did fill this prescription and has never taken this. 7. Venous insufficiency of the lower extremities. a. Controlled with the use of moderate pressure knee-high support hose. 8. Chronic stasis dermatitis of the lower extremities. 9. Obstructive sleep apnea. 10. Chronic diastolic congestive heart failure. a. No evidence of acute congestive heart failure as of 02/27/2019. 11. Gout. a. Asymptomatic. PLAN: Continue present care. Continue PT/OT. Job ID: [id number] MTDD
[2019-02-27] MEDS: Warfarin Sodium 2.5 MG TAB PO SCH (17:05)
[2019-02-27] MEDS: Warfarin Sodium 5 MG TAB PO SCH (17:05)
[2019-02-27] MEDS: Acetaminophen 500 MG TAB PO PRN (20:40)
[2019-02-27] MEDS: diphenhydrAMINE 25 MG CAP PO PRN (20:40)
[2019-02-27] MEDS: traMADol HCl 50 MG TAB PO PRN (20:40)
[2019-02-28 05:13] LABS: INR-International Normal Ratio 2.9; Prothrombin Time 30.3 SEC (12.0-14.7)
[2019-02-28] MEDS: Lisinopril 10 MG TAB PO SCH ×2 (08:14→21:02)
[2019-02-28] MEDS: Aspirin Chewable 81 MG TAB PO SCH (08:14)
[2019-02-28] MEDS: Furosemide 40 MG TAB PO SCH (08:14)
[2019-02-28] MEDS: Carvedilol 6.25 MG TAB PO SCH ×2 (08:14→21:02)
[2019-02-28] MEDS: Colchicine 0.6 MG TAB PO SCH (08:14)
[2019-02-28] MEDS: Potassium Chloride 20 MEQ TAB PO SCH ×2 (08:14→17:04)
[2019-02-28] MEDS: Hydrochlorothiazide 25 MG TAB PO SCH ×2 (08:15→21:02)
[2019-02-28] MEDS: FLUoxetine HCl 20 MG CAP PO SCH (08:15)
[2019-02-28] MEDS: Emollient 15 oz bottle 450 ML, Triamcinolone Acetonide 200 MG TOP SCH ×2 (08:15→21:04)
--- NOTE | 2019-02-28 11:04 | PRG ---
DATE OF SERVICE: 02/28/2019 SUBJECTIVE: The patient said he is doing very well. He has no complaint. He has continued to make progress with his therapy. OBJECTIVE: GENERAL: The patient is sitting up in his bedside chair. He is alert, talkative, appears comfortable, in no distress. VITAL SIGNS: Temperature 97.1, pulse 58, blood pressure 128/57, respirations 16 , O2 saturation 97% on room air. LUNGS: Clear. HEART: Regular rate. EXTREMITIES: Lower extremities, just trace edema. He is wearing his knee-high support hose that fit appropriately and controlling the swelling. ASSESSMENT: 1.Severe generalized weakness and deconditioning. a. Secondary to recent hospitalization and acute illness. b. He was independent of all his ADLs prior to acute hospitalization. c. Improved. Walking up to 65 feet with a rolling walker several times a day. Transferring easier with minimal assistance as of 02/28/2019. 2. Hospitalized at [facility] from 02/03/2019 to 2018 with a sepsis syndrome, presenting with fever and metabolic encephalopathy. Etiology not determined. Suspect underlying bacterial or viral syndrome, that is resolving. 3. Chronic atrial fibrillation: a. Status post ablation that failed. b. On chronic anticoagulation. 4. Hypertension: a. Controlled. 5. Morbid obesity. 6. Pulmonary hypertension. a. Stable. The patient previously had been given a prescription for sildenafil, but he never did fill this prescription and has never taken this. 7. Venous insufficiency of the lower extremities. a. Controlled with the use of moderate pressure knee-high support hose. 8. Chronic stasis dermatitis of the lower extremities. 9. Obstructive sleep apnea. 10. Chronic diastolic congestive heart failure. a. No evidence of acute congestive heart failure as of 02/28/2019. 11. Gout. a. Asymptomatic. PLAN: Continue present care. Continue PT. Anticipate discharge tomorrow. Job ID: [id number] MTDD
[2019-02-28] MEDS: Warfarin Sodium 2.5 MG TAB PO SCH (17:05)
[2019-02-28] MEDS: Warfarin Sodium 5 MG TAB PO SCH (17:05)
[2019-02-28] MEDS: diphenhydrAMINE 25 MG CAP PO PRN (21:02)
[2019-02-28] MEDS: Acetaminophen 500 MG TAB PO PRN (21:03)
[2019-02-28] MEDS: traMADol HCl 50 MG TAB PO PRN (21:03)
[2019-03-01 05:14] LABS: INR-International Normal Ratio 3.1; Prothrombin Time 31.4 SEC (12.0-14.7)
[2019-03-01 07:55] VITALS: BP 130/60; TEMP 97
[2019-03-01] MEDS: Lisinopril 10 MG TAB PO SCH (08:15)
[2019-03-01] MEDS: Carvedilol 6.25 MG TAB PO SCH (08:15)
[2019-03-01] MEDS: Colchicine 0.6 MG TAB PO SCH (08:15)
[2019-03-01] MEDS: Aspirin Chewable 81 MG TAB PO SCH (08:15)
[2019-03-01] MEDS: Hydrochlorothiazide 25 MG TAB PO SCH (08:15)
[2019-03-01] MEDS: FLUoxetine HCl 20 MG CAP PO SCH (08:16)
[2019-03-01] MEDS: Emollient 15 oz bottle 450 ML, Triamcinolone Acetonide 200 MG TOP SCH (08:16)
[2019-03-01] MEDS: Potassium Chloride 20 MEQ TAB PO SCH (08:16)
[2019-03-01] MEDS: Furosemide 40 MG TAB PO SCH (08:16)
--- NOTE | 2019-03-01 11:35 | DIS ---
DATE OF ADMISSION: 02/13/2019 DATE OF DISCHARGE: 03/01/2019 FINAL DIAGNOSES: 1.Severe generalized weakness and deconditioning. a. Secondary to recent hospitalization and acute illness. b. He was independent of all his ADLs prior to acute hospitalization. c. Improved. Walking up to 80 to 100 feet several times a day with a rolling walker. Transferring with minimal assistance as of 03/01/2019. 2. Hospitalized at [facility] from 02/03/2019 to 2018 with a sepsis syndrome, presenting with fever and metabolic encephalopathy. Etiology not determined. Suspect underlying bacterial or viral syndrome, that has resolved.esolving. 3. Chronic atrial fibrillation: a. Status post ablation that failed. b. On chronic anticoagulation. 4. Hypertension: a. Controlled. 5. Morbid obesity. 6. Pulmonary hypertension. a. Stable. The patient previously had been given a prescription for sildenafil, but he never did fill this prescription and has never taken this. 7. Venous insufficiency of the lower extremities. a. Controlled with the use of moderate pressure knee-high support hose. 8. Chronic stasis dermatitis of the lower extremities. a. Controlled. 9. Obstructive sleep apnea. 10. Chronic diastolic congestive heart failure. a. No evidence of acute congestive heart failure as of 03/01/2019. 11. Gout. a. Asymptomatic. SUMMARY: The patient is a 73-year-old white male, who has a history of morbid obesity, severe venous insufficiency of the lower extremity with chronic stasis dermatitis, chronic atrial fibrillation, for which he is on anticoagulants, hypertension, obstructive sleep apnea, for which he is on a CPAP and chronic diastolic congestive heart failure, and gout. The patient lives at home with his and has family close by. He was independent of his ADLs prior to his most recent hospitalization. The patient was hospitalized at [facility] from 02/03 until 02/13/2019 with a sepsis syndrome presenting with fever, metabolic encephalopathy, etiology was not determined, suspect that this was underlying bacterial or viral syndrome. Cultures were all negative. He was initially treated with antibiotics with improvement. He was left extremely weak and needed assistance with all his ADLs. As a consequence, he was transferred to [facility] on 02/13/2019 for continued management with his present medicines and physical therapy and occupational therapy. The patient made excellent progress during his hospitalization. During this time, he gradually able to walk and the distance he walked gradually lengthened. On the time of his discharge, he was walking 80 to 150 feet with a rolling walker and only standby assistance. He still needed just some minimal assistance with transfers. He felt that his strength at the time of his discharge was such that he could manage things fine at home with his rolling walker. His venous insufficiency was managed with knee-high support hose that did an excellent job with this and with the elevation. He slept in the lounge chair at night with the feet elevated. He has chronic stasis dermatitis that was managed with Diana with Kenalog 15 ounces/200 mg, which he said really helped his leg and relieved the itching and the dryness and irritation, and this he will continue. The patient has obstructive sleep apnea and he slept under his CPAP. He has a history of pulmonary hypertension, but had previously been given medicine for this, but never did feel this. He has a history of gout that he has been basically has not had any acute flare-ups during hospitalization. He has chronic atrial fibrillation. The rate has been a regular rhythm since here at the hospital. His rates have been controlled. His INR was on the high side of normal. His usual dosage at home has been 6 mg daily. This has been up to 7.5 mg daily , but his INR was running around 2.9 to 3.1. For simplicity, this will be cut back to 6 mg a day, which he has at home. He monitors his PT/INR at home and he will do this weekly and report these values to me. By 03/01, his condition did improve such that it was felt that, he could be managed at home. He did not feel like he needed Home Health to assist him. We will see him in followup in 2 weeks. During the patient's hospitalization, he completed his 7-day course of doxycycline. He had no more fever and no evidence of any infection. DISPOSITION: DIET: Regular diet. No added salt. ACTIVITIES: Ambulate with the use of a walker. When sitting, elevate the legs. The patient sleeps in a lounge chair and he needs to make sure that he is fully reclined when sleeping. He needs to wear his knee-high support hose daily. Ambulate with the use of a walker. MEDICATIONS: 1. Acetaminophen 325 mg two every 6 hours as needed. 2. Maalox 30 mL every 4 hours as needed. 3. Ventolin inhaler 2.5 mg daily. 4. Carvedilol 6.25 mg b.i.d. 5. Aspirin 81 mg daily. 6. Fluoxetine 20 mg daily. 7. Lisinopril/hydrochlorothiazide 20/12.5 one b.i.d. 8. Diana lotion with Kenalog 15 ounces/200 mg applied to the leg sparingly daily. 9. MiraLAX 17 g 8 ounces of water daily p.r.n. 10. KCl 20 mEq b.i.d. 11. Warfarin 6 mg daily. 12. Tramadol 50 mg one a day p.r.n. FOLLOWUP: The patient will be seen in followup in my office in 2 weeks. Prior to that visit, he will need a CBC, basic metabolic panel, PT, INR. Since he has a home meter that he checks his PT and INR, will check this weekly. Job ID: [id number] [facility]
== END 2019-03-01 12:00 | disposition home or self-care (01) | DRG 871 ==
LOC: MADMS 19:27
PROVIDERS: ADMIT Family Medicine; ATTEND Family Medicine
DX: A41.9 Sepsis, unspecified organism (principal); G93.41 Metabolic encephalopathy; I50.32 Chronic diastolic (congestive) heart failure; Z68.42 Body mass index [BMI] 45.0-49.9, adult; I48.2 Chronic atrial fibrillation; E66.01 Morbid (severe) obesity due to excess calories; I27.20 Pulmonary hypertension, unspecified; I87.2 Venous insufficiency (chronic) (peripheral); G47.33 Obstructive sleep apnea (adult) (pediatric); M10.9 Gout, unspecified; I11.0 Hypertensive heart disease with heart failure
CPT/HCPCS: 36415; 80048; 80053; 80061; 84443; 84550; 85025; 85610; J3301; Q0163

== ENCOUNTER 2019-03-14 16:51 | Outpatient (CLI) | payer MEDICARE ==
[2019-03-14 17:35] LABS: INR-International Normal Ratio 3.5; Prothrombin Time 34.5 SEC (12.0-14.7)
[2019-03-14 17:43] LABS: Anion Gap 16 mmol/L (10-20); BUN (Urea Nitrogen) 24 mg/dL (8.4-25.7); Calc. Creatinine Clearance 0 mL/min (70-130); Calcium 9.3 mg/dL (7.8-10.44); Carbon Dioxide 27 mmol/L (23-31); Chloride 103 mmol/L (98-107); Estimated GFR-MDRD 66; Glucose 95 mg/dL (83-110); Sodium 143 mmol/L (136-145)
[2019-03-14 17:45] LABS: #Eosinphils 0.1 thou/uL (0.0-0.7); #Lymphocytes 1.7 thou/uL (1.20-3.40); #Monocytes 0.6 thou/uL (0.11-0.59); %Basophils 0.5 % (0.0-1.0); %Eosinophils 0.9 % (0.0-10.0); %Lymphocytes 18.1 % (21.0-51.0); %Monocytes 6.7 % (0.0-10.0); %Neutrophils 73.8 % (42.0-75.0); Hemoglobin 12.6 g/dL (14.0-18.0); Mean Corpuscular HGB CONC 32.2 g/dL (32.0-36.0); Mean Corpuscular Hemoglobin 28.4 pg (27.0-31.0); Mean Corpuscular Volume 88.1 fL (78.0-98.0); Mean Platelet Volume 5.6 fL (7.4-10.4); Platelet Count 243 thou/uL (130-400); RBC Distribution Width 15.9 % (11.5-14.5); Red Blood Cell (RBC) Count 4.45 mill/uL (4.70-6.10); White Blood Cell (WBC) Count 9.4 thou/uL (4.8-10.8)
== END 2019-03-14 16:52 | disposition home or self-care (01) ==
LOC: MADLABBHPM 16:51
PROVIDERS: ATTEND Family Medicine
DX: Z51.81 Encounter for therapeutic drug level monitoring (principal); I48.91 Unspecified atrial fibrillation; I10 Essential (primary) hypertension; Z79.01 Long term (current) use of anticoagulants
CPT/HCPCS: 80048; 85025; 85610

== ENCOUNTER 2019-05-17 12:03 | Outpatient (CLI) | payer MEDICARE ==
[2019-05-17 12:39] LABS: INR-International Normal Ratio 2.3; Prothrombin Time 25.2 SEC (12.0-14.7)
[2019-05-17 12:46] LABS: Anion Gap 13 mmol/L (10-20); BUN (Urea Nitrogen) 18 mg/dL (8.4-25.7); Calc. Creatinine Clearance 0 mL/min (70-130); Calcium 9.9 mg/dL (7.8-10.44); Carbon Dioxide 28 mmol/L (23-31); Chloride 103 mmol/L (98-107); Estimated GFR-MDRD 77; Glucose 96 mg/dL (83-110); Potassium 3.8 mmol/L (3.5-5.1); Sodium 140 mmol/L (136-145)
== END 2019-05-17 12:04 | disposition home or self-care (01) ==
LOC: MADLABBHPM 12:03
PROVIDERS: ATTEND Family Medicine
DX: E87.6 Hypokalemia (principal)
CPT/HCPCS: 36415; 80048; 85610

== ENCOUNTER 2020-07-03 18:31 | Emergency (ER) | payer MEDICARE | END 2020-07-03 19:31 | disposition home or self-care (01) | LOC: MADERS 18:31 | DX: B35.4 Tinea corporis (principal); I48.91 Unspecified atrial fibrillation; E78.5 Hyperlipidemia, unspecified; I25.10 Atherosclerotic heart disease of native coronary artery without angina pectoris; I11.0 Hypertensive heart disease with heart failure; I50.9 Heart failure, unspecified; M10.9 Gout, unspecified; Z87.891 Personal history of nicotine dependence | CPT/HCPCS: 99282 ==

== ENCOUNTER 2020-10-20 10:07 | Inpatient (IN) | payer MEDICARE ==
[2020-10-20] MEDS ORDERED: Albuterol 200 PUFF (6.7GM INHALER) INH PRN (19:59)
[2020-10-20] MEDS: Carvedilol 6.25 MG TAB PO SCH (20:38)
[2020-10-20] MEDS: Ciprofloxacin 500 MG TAB PO SCH (20:38)
[2020-10-20] MEDS: diphenhydrAMINE 25 MG CAP PO SCH (20:38)
[2020-10-20] MEDS: Doxycycline 100 MG CAP PO SCH (20:38)
[2020-10-20] MEDS ORDERED: Acetaminophen 500 MG TAB PO SCH (21:00)
[2020-10-21] MEDS: Ciprofloxacin 500 MG TAB PO SCH ×2 (05:40→21:13)
[2020-10-21 07:23] LABS: INR-International Normal Ratio 1.9; PTT 42.2 sec (22.9-36.1)
[2020-10-21 07:33] LABS: ALT (SGPT) 17 U/L (8-55); AST (SGOT) 21 U/L (5-34); Albumin 3.4 g/dL (3.4-4.8); Alkaline Phosphatase 69 U/L (40-110); Anion Gap 15 mmol/L (10-20); BUN (Urea Nitrogen) 30 mg/dL (8.4-25.7); Bilirubin, Total 0.4 mg/dL (0.2-1.2); Calc. Creatinine Clearance 212 mL/min (70-130); Calcium 9.3 mg/dL (7.8-10.44); Carbon Dioxide 25 mmol/L (23-31); Chloride 105 mmol/L (98-107); Globulin 2.4 g/dL (2.4-3.5); Glucose 123 mg/dL (83-110); Potassium 4.1 mmol/L (3.5-5.1); Protein, Total 5.8 g/dL (5.8-8.1); Sodium 141 mmol/L (136-145)
[2020-10-21 07:47] LABS: #Basophils 0.1 thou/uL (0.0-0.2); #Eosinphils 0.2 thou/uL (0.0-0.7); #Lymphocytes 1.4 thou/uL (1.20-3.40); #Monocytes 0.8 thou/uL (0.11-0.59); #Neutrophils 5.5 thou/uL (1.40-6.50); %Basophils 0.9 % (0.0-1.0); %Lymphocytes 17.8 % (21.0-51.0); %Monocytes 9.5 % (0.0-10.0); %Neutrophils 69.8 % (42.0-75.0); Hemoglobin 13.3 g/dL (14.0-18.0); Mean Corpuscular HGB CONC 31.3 g/dL (32.0-36.0); Mean Corpuscular Hemoglobin 27.9 pg (27.0-31.0); Mean Corpuscular Volume 89.4 fL (78.0-98.0); Mean Platelet Volume 5.4 fL (7.4-10.4); Platelet Count 294 thou/uL (130-400); RBC Distribution Width 14.2 % (11.5-14.5); Red Blood Cell (RBC) Count 4.76 mill/uL (4.70-6.10); White Blood Cell (WBC) Count 7.9 thou/uL (4.8-10.8)
[2020-10-21] MEDS ORDERED: Colchicine 0.6 MG TAB PO SCH (09:00)
[2020-10-21] MEDS: Carvedilol 6.25 MG TAB PO SCH ×2 (09:42→21:13)
[2020-10-21] MEDS: Furosemide 40 MG TAB PO SCH (09:42)
[2020-10-21] MEDS: FLUoxetine HCl 20 MG CAP PO SCH (09:42)
[2020-10-21] MEDS: Doxycycline 100 MG CAP PO SCH ×2 (09:42→21:13)
[2020-10-21] MEDS: Aspirin Chewable 81 MG TAB PO SCH (09:42)
[2020-10-21] MEDS: Emollient 15 oz bottle 450 ML, Triamcinolone Acetonide 200 MG TOP SCH ×2 (15:15→21:18)
[2020-10-21] MEDS: Warfarin Sodium 2 MG TAB PO SCH (16:48)
[2020-10-21] MEDS ORDERED: Keri Lotion 15 oz BOT TOP SCH (21:00)
[2020-10-21] MEDS: diphenhydrAMINE 25 MG CAP PO SCH (21:13)
[2020-10-21] MEDS: Acetaminophen 325 MG TAB PO PRN (21:15)
[2020-10-22] MEDS: Ciprofloxacin 500 MG TAB PO SCH ×2 (05:37→20:26)
[2020-10-22 08:30] LABS: INR-International Normal Ratio 1.9; Prothrombin Time 22.5 sec (12.0-14.7)
[2020-10-22] MEDS: Furosemide 40 MG TAB PO SCH (09:02)
[2020-10-22] MEDS: Doxycycline 100 MG CAP PO SCH ×2 (09:02→20:26)
[2020-10-22] MEDS: FLUoxetine HCl 20 MG CAP PO SCH (09:02)
[2020-10-22] MEDS: Aspirin Chewable 81 MG TAB PO SCH (09:02)
[2020-10-22] MEDS: Carvedilol 6.25 MG TAB PO SCH ×2 (09:02→20:26)
[2020-10-22] MEDS: Emollient 15 oz bottle 450 ML, Triamcinolone Acetonide 200 MG TOP SCH ×2 (09:03→20:27)
[2020-10-22] MEDS: Warfarin Sodium 2 MG TAB PO SCH (17:18)
[2020-10-22] MEDS: diphenhydrAMINE 25 MG CAP PO SCH (20:26)
[2020-10-22] MEDS: Acetaminophen 325 MG TAB PO PRN (20:36)
[2020-10-23] MEDS: Ciprofloxacin 500 MG TAB PO SCH ×2 (05:20→20:09)
[2020-10-23 06:09] LABS: INR-International Normal Ratio 1.8; Prothrombin Time 21.7 sec (12.0-14.7)
[2020-10-23] MEDS: FLUoxetine HCl 20 MG CAP PO SCH (08:53)
[2020-10-23] MEDS: Furosemide 40 MG TAB PO SCH (08:54)
[2020-10-23] MEDS: Carvedilol 6.25 MG TAB PO SCH ×2 (08:54→20:10)
[2020-10-23] MEDS: Aspirin Chewable 81 MG TAB PO SCH (08:54)
[2020-10-23] MEDS: Doxycycline 100 MG CAP PO SCH ×2 (08:54→20:09)
[2020-10-23] MEDS: Emollient 15 oz bottle 450 ML, Triamcinolone Acetonide 200 MG TOP SCH ×2 (08:55→20:10)
[2020-10-23] MEDS: traMADol HCl 50 MG TAB PO PRN (09:06)
[2020-10-23] MEDS: Warfarin Sodium 2 MG TAB PO SCH (17:14)
[2020-10-23] MEDS: Acetaminophen 325 MG TAB PO PRN (20:10)
[2020-10-23] MEDS: diphenhydrAMINE 25 MG CAP PO SCH (20:10)
[2020-10-24] MEDS: Ciprofloxacin 500 MG TAB PO SCH ×2 (05:07→20:08)
[2020-10-24 05:46] LABS: INR-International Normal Ratio 1.8; Prothrombin Time 21.2 sec (12.0-14.7)
[2020-10-24] MEDS: traMADol HCl 50 MG TAB PO PRN (08:38)
[2020-10-24] MEDS: Aspirin Chewable 81 MG TAB PO SCH (08:38)
[2020-10-24] MEDS: FLUoxetine HCl 20 MG CAP PO SCH (08:38)
[2020-10-24] MEDS: Furosemide 40 MG TAB PO SCH (08:38)
[2020-10-24] MEDS: Doxycycline 100 MG CAP PO SCH ×2 (08:40→20:10)
[2020-10-24] MEDS: Emollient 15 oz bottle 450 ML, Triamcinolone Acetonide 200 MG TOP SCH ×2 (08:40→20:11)
[2020-10-24] MEDS: Carvedilol 6.25 MG TAB PO SCH ×2 (08:40→20:09)
[2020-10-24] MEDS: Warfarin Sodium 2 MG TAB PO SCH (17:55)
[2020-10-24] MEDS: diphenhydrAMINE 25 MG CAP PO SCH (20:09)
[2020-10-24] MEDS: Acetaminophen 325 MG TAB PO PRN (20:17)
[2020-10-25 05:44] LABS: INR-International Normal Ratio 1.8; Prothrombin Time 21.7 sec (12.0-14.7)
[2020-10-25] MEDS: Ciprofloxacin 500 MG TAB PO SCH ×2 (05:50→20:30)
[2020-10-25] MEDS: Aspirin Chewable 81 MG TAB PO SCH (09:42)
[2020-10-25] MEDS: FLUoxetine HCl 20 MG CAP PO SCH (09:42)
[2020-10-25] MEDS: Carvedilol 6.25 MG TAB PO SCH ×2 (09:43→20:59)
[2020-10-25] MEDS: Furosemide 40 MG TAB PO SCH (09:43)
[2020-10-25] MEDS: Emollient 15 oz bottle 450 ML, Triamcinolone Acetonide 200 MG TOP SCH ×2 (09:44→21:00)
[2020-10-25] MEDS: Doxycycline 100 MG CAP PO SCH ×2 (09:54→21:00)
[2020-10-25] MEDS: Warfarin Sodium 2 MG TAB PO SCH (17:46)
[2020-10-25] MEDS: diphenhydrAMINE 25 MG CAP PO SCH (20:59)
[2020-10-25] MEDS: Acetaminophen 325 MG TAB PO PRN (21:00)
[2020-10-26] MEDS: Ciprofloxacin 500 MG TAB PO SCH ×2 (05:34→20:02)
[2020-10-26 05:44] LABS: INR-International Normal Ratio 1.9; Prothrombin Time 22.1 sec (12.0-14.7)
[2020-10-26] MEDS: Carvedilol 6.25 MG TAB PO SCH ×2 (09:18→20:02)
[2020-10-26] MEDS: Doxycycline 100 MG CAP PO SCH ×2 (09:18→20:03)
[2020-10-26] MEDS: Aspirin Chewable 81 MG TAB PO SCH (09:18)
[2020-10-26] MEDS: Furosemide 40 MG TAB PO SCH ×2 (09:18→09:19)
[2020-10-26] MEDS: FLUoxetine HCl 20 MG CAP PO SCH (09:18)
[2020-10-26] MEDS: Emollient 15 oz bottle 450 ML, Triamcinolone Acetonide 200 MG TOP SCH ×2 (09:19→20:04)
[2020-10-26] MEDS: Warfarin Sodium 2 MG TAB PO SCH (17:43)
[2020-10-26] MEDS: diphenhydrAMINE 25 MG CAP PO SCH (20:03)
[2020-10-26] MEDS: traMADol HCl 50 MG TAB PO PRN (22:08)
[2020-10-27] MEDS: Ciprofloxacin 500 MG TAB PO SCH ×2 (05:17→20:08)
[2020-10-27 05:51] LABS: INR-International Normal Ratio 1.8; Prothrombin Time 21.6 sec (12.0-14.7)
[2020-10-27] MEDS: Aspirin Chewable 81 MG TAB PO SCH (09:07)
[2020-10-27] MEDS: Doxycycline 100 MG CAP PO SCH ×2 (09:08→20:08)
[2020-10-27] MEDS: FLUoxetine HCl 20 MG CAP PO SCH (09:08)
[2020-10-27] MEDS: Carvedilol 6.25 MG TAB PO SCH ×2 (09:08→20:08)
[2020-10-27] MEDS: Lisinopril 20 MG TAB PO SCH ×2 (09:09→20:08)
[2020-10-27] MEDS: Emollient 15 oz bottle 450 ML, Triamcinolone Acetonide 200 MG TOP SCH ×2 (09:11→20:18)
[2020-10-27] MEDS: Warfarin Sodium 2 MG TAB PO SCH (17:50)
[2020-10-27] MEDS: diphenhydrAMINE 25 MG CAP PO SCH (20:08)
[2020-10-27] MEDS: Acetaminophen 325 MG TAB PO PRN (20:14)
[2020-10-27] MEDS: traMADol HCl 50 MG TAB PO PRN (20:14)
[2020-10-28] MEDS: Ciprofloxacin 500 MG TAB PO SCH ×2 (05:37→20:42)
[2020-10-28 06:00] LABS: INR-International Normal Ratio 1.9; Prothrombin Time 22.5 sec (12.0-14.7)
[2020-10-28] MEDS: traMADol HCl 50 MG TAB PO PRN ×2 (08:10→20:52)
[2020-10-28] MEDS: Aspirin Chewable 81 MG TAB PO SCH (08:10)
[2020-10-28] MEDS: Carvedilol 6.25 MG TAB PO SCH ×2 (08:10→20:42)
[2020-10-28] MEDS: Lisinopril 20 MG TAB PO SCH ×2 (08:11→20:43)
[2020-10-28] MEDS: Furosemide 40 MG TAB PO SCH (08:12)
[2020-10-28] MEDS: FLUoxetine HCl 20 MG CAP PO SCH (08:12)
[2020-10-28] MEDS: Doxycycline 100 MG CAP PO SCH ×2 (08:12→20:43)
[2020-10-28] MEDS: Emollient 15 oz bottle 450 ML, Triamcinolone Acetonide 200 MG TOP SCH ×2 (08:13→20:44)
[2020-10-28] MEDS: Acetaminophen 325 MG TAB PO PRN (17:14)
[2020-10-28] MEDS: Warfarin Sodium 2 MG TAB PO SCH (17:16)
[2020-10-28] MEDS: diphenhydrAMINE 25 MG CAP PO SCH (20:43)
[2020-10-29] MEDS: Colchicine 0.6 MG TAB PO PRN ×2 (00:24→18:00)
[2020-10-29] MEDS: Ciprofloxacin 500 MG TAB PO SCH ×2 (05:46→21:06)
[2020-10-29 06:06] LABS: Prothrombin Time 23.1 sec (12.0-14.7)
[2020-10-29] MEDS: Furosemide 40 MG TAB PO SCH (09:12)
[2020-10-29] MEDS: Lisinopril 20 MG TAB PO SCH ×2 (09:12→21:07)
[2020-10-29] MEDS: Doxycycline 100 MG CAP PO SCH ×2 (09:12→21:07)
[2020-10-29] MEDS: FLUoxetine HCl 20 MG CAP PO SCH (09:12)
[2020-10-29] MEDS: Carvedilol 6.25 MG TAB PO SCH ×2 (09:12→21:07)
[2020-10-29] MEDS: Emollient 15 oz bottle 450 ML, Triamcinolone Acetonide 200 MG TOP SCH ×2 (09:16→21:08)
[2020-10-29] MEDS: Aspirin Chewable 81 MG TAB PO SCH (09:16)
[2020-10-29] MEDS: Warfarin Sodium 2 MG TAB PO SCH (18:00)
[2020-10-29] MEDS: diphenhydrAMINE 25 MG CAP PO SCH (21:07)
[2020-10-29] MEDS: traMADol HCl 50 MG TAB PO PRN (21:09)
[2020-10-30] MEDS: Ciprofloxacin 500 MG TAB PO SCH ×2 (05:28→20:54)
[2020-10-30 06:20] LABS: INR-International Normal Ratio 1.9; Prothrombin Time 22.6 sec (12.0-14.7)
[2020-10-30] MEDS: traMADol HCl 50 MG TAB PO PRN ×2 (08:31→20:52)
[2020-10-30] MEDS: Acetaminophen 325 MG TAB PO PRN (08:35)
[2020-10-30] MEDS: Carvedilol 6.25 MG TAB PO SCH ×2 (08:36→20:54)
[2020-10-30] MEDS: Lisinopril 20 MG TAB PO SCH ×2 (08:36→20:59)
[2020-10-30] MEDS: Aspirin Chewable 81 MG TAB PO SCH (08:36)
[2020-10-30] MEDS: Furosemide 40 MG TAB PO SCH (08:36)
[2020-10-30] MEDS: FLUoxetine HCl 20 MG CAP PO SCH (08:36)
[2020-10-30] MEDS: Emollient 15 oz bottle 450 ML, Triamcinolone Acetonide 200 MG TOP SCH ×2 (08:36→20:55)
[2020-10-30] MEDS: Doxycycline 100 MG CAP PO SCH ×2 (08:36→20:52)
[2020-10-30] MEDS: Warfarin Sodium 2 MG TAB PO SCH (17:15)
[2020-10-30] MEDS: diphenhydrAMINE 25 MG CAP PO SCH (20:54)
[2020-10-31 07:28] LABS: INR-International Normal Ratio 1.9; Prothrombin Time 22.2 sec (12.0-14.7)
[2020-10-31 07:57] LABS: Anion Gap 13 mmol/L (10-20); BUN (Urea Nitrogen) 21 mg/dL (8.4-25.7); Calc. Creatinine Clearance 204 mL/min (70-130); Carbon Dioxide 26 mmol/L (23-31); Chloride 108 mmol/L (98-107); Glucose 99 mg/dL (83-110); Potassium 4.7 mmol/L (3.5-5.1); Sodium 142 mmol/L (136-145)
[2020-10-31 08:00] LABS: Hemoglobin 13.1 g/dL (14.0-18.0); Mean Corpuscular HGB CONC 30.5 g/dL (32.0-36.0); Mean Corpuscular Hemoglobin 27.6 pg (27.0-31.0); Mean Corpuscular Volume 90.5 fL (78.0-98.0); Mean Platelet Volume 5.6 fL (7.4-10.4); Platelet Count 226 thou/uL (130-400); RBC Distribution Width 15.1 % (11.5-14.5); Red Blood Cell (RBC) Count 4.62 mill/uL (4.70-6.10); White Blood Cell (WBC) Count 6.3 thou/uL (4.8-10.8)
[2020-10-31 08:05] LABS: Lymphocytes 15 % (21-51); Monocytes 5 % (0-10); Neutrophil 85 % (42-75)
[2020-10-31 08:06] LABS: MDiff Complete? YES; Platelet Morphology Comment Appears Adequate; RBC Morphology Normal
[2020-10-31] MEDS: FLUoxetine HCl 20 MG CAP PO SCH (09:07)
[2020-10-31] MEDS: Lisinopril 20 MG TAB PO SCH ×2 (09:07→20:48)
[2020-10-31] MEDS: Aspirin Chewable 81 MG TAB PO SCH (09:08)
[2020-10-31] MEDS: Furosemide 40 MG TAB PO SCH (09:08)
[2020-10-31] MEDS: Carvedilol 6.25 MG TAB PO SCH ×2 (09:08→20:47)
[2020-10-31] MEDS: Emollient 15 oz bottle 450 ML, Triamcinolone Acetonide 200 MG TOP SCH ×2 (09:08→20:49)
[2020-10-31] MEDS: Warfarin Sodium 2 MG TAB PO SCH (17:16)
[2020-10-31] MEDS: diphenhydrAMINE 25 MG CAP PO SCH (20:48)
[2020-10-31] MEDS: traMADol HCl 50 MG TAB PO PRN (20:50)
[2020-11-01] MEDS: Aspirin Chewable 81 MG TAB PO SCH (09:13)
[2020-11-01] MEDS: Lisinopril 20 MG TAB PO SCH ×2 (09:13→20:06)
[2020-11-01] MEDS: FLUoxetine HCl 20 MG CAP PO SCH (09:13)
[2020-11-01] MEDS: Furosemide 40 MG TAB PO SCH (09:14)
[2020-11-01] MEDS: traMADol HCl 50 MG TAB PO PRN (09:14)
[2020-11-01] MEDS: Carvedilol 6.25 MG TAB PO SCH ×2 (09:14→20:06)
[2020-11-01] MEDS: Emollient 15 oz bottle 450 ML, Triamcinolone Acetonide 200 MG TOP SCH ×2 (09:40→20:06)
[2020-11-01] MEDS: Colchicine 0.6 MG TAB PO PRN (09:40)
[2020-11-01] MEDS: Warfarin Sodium 2 MG TAB PO SCH (17:10)
[2020-11-01] MEDS: Acetaminophen 325 MG TAB PO PRN (20:05)
[2020-11-01] MEDS: diphenhydrAMINE 25 MG CAP PO SCH (20:06)
[2020-11-02] MEDS: FLUoxetine HCl 20 MG CAP PO SCH (09:03)
[2020-11-02] MEDS: Aspirin Chewable 81 MG TAB PO SCH (09:03)
[2020-11-02] MEDS: Emollient 15 oz bottle 450 ML, Triamcinolone Acetonide 200 MG TOP SCH ×2 (09:04→20:39)
[2020-11-02] MEDS: Furosemide 40 MG TAB PO SCH (09:04)
[2020-11-02] MEDS: Lisinopril 20 MG TAB PO SCH ×2 (09:04→20:38)
[2020-11-02] MEDS: Carvedilol 6.25 MG TAB PO SCH ×2 (09:04→20:38)
[2020-11-02] MEDS: Warfarin Sodium 2 MG TAB PO SCH (16:51)
[2020-11-02] MEDS: Colchicine 0.6 MG TAB PO PRN (16:58)
[2020-11-02] MEDS: traMADol HCl 50 MG TAB PO PRN (16:58)
[2020-11-02] MEDS: Acetaminophen 325 MG TAB PO PRN (16:59)
[2020-11-02] MEDS: diphenhydrAMINE 25 MG CAP PO SCH (20:38)
[2020-11-03 05:39] LABS: Prothrombin Time 23.3 sec (12.0-14.7)
[2020-11-03] MEDS: Lisinopril 20 MG TAB PO SCH ×2 (08:15→21:01)
[2020-11-03] MEDS: Carvedilol 6.25 MG TAB PO SCH ×2 (08:16→21:01)
[2020-11-03] MEDS: Furosemide 40 MG TAB PO SCH (08:16)
[2020-11-03] MEDS: FLUoxetine HCl 20 MG CAP PO SCH (08:16)
[2020-11-03] MEDS: Aspirin Chewable 81 MG TAB PO SCH (08:17)
[2020-11-03] MEDS: Emollient 15 oz bottle 450 ML, Triamcinolone Acetonide 200 MG TOP SCH ×2 (08:17→21:01)
[2020-11-03] MEDS: Colchicine 0.6 MG TAB PO PRN (08:48)
[2020-11-03 10:39] VITALS: BMI 53.6
[2020-11-03] MEDS ORDERED: Loperamide HCl 2 MG CAP PO PRN (11:32)
[2020-11-03] MEDS: Warfarin Sodium 2 MG TAB PO SCH (16:42)
[2020-11-03] MEDS: diphenhydrAMINE 25 MG CAP PO SCH (21:01)
[2020-11-03] MEDS: traMADol HCl 50 MG TAB PO PRN (21:04)
[2020-11-04 05:37] LABS: INR-International Normal Ratio 2.2; Prothrombin Time 24.8 sec (12.0-14.7)
[2020-11-04] MEDS: Lisinopril 20 MG TAB PO SCH ×2 (09:19→20:46)
[2020-11-04] MEDS: FLUoxetine HCl 20 MG CAP PO SCH (09:19)
[2020-11-04] MEDS: Aspirin Chewable 81 MG TAB PO SCH (09:19)
[2020-11-04] MEDS: Carvedilol 6.25 MG TAB PO SCH ×2 (09:20→20:46)
[2020-11-04] MEDS: Emollient 15 oz bottle 450 ML, Triamcinolone Acetonide 200 MG TOP SCH ×2 (09:20→20:47)
[2020-11-04] MEDS: Furosemide 40 MG TAB PO SCH (09:20)
[2020-11-04] MEDS: Warfarin Sodium 2 MG TAB PO SCH (17:51)
[2020-11-04] MEDS: traMADol HCl 50 MG TAB PO PRN (20:45)
[2020-11-04] MEDS: diphenhydrAMINE 25 MG CAP PO SCH (20:46)
[2020-11-05 05:47] LABS: INR-International Normal Ratio 2.5; Prothrombin Time 27.6 sec (12.0-14.7)
[2020-11-05] MEDS: Lisinopril 20 MG TAB PO SCH ×2 (08:05→20:46)
[2020-11-05] MEDS: Emollient 15 oz bottle 450 ML, Triamcinolone Acetonide 200 MG TOP SCH ×2 (08:05→20:47)
[2020-11-05] MEDS: FLUoxetine HCl 20 MG CAP PO SCH (08:05)
[2020-11-05] MEDS: Furosemide 40 MG TAB PO SCH (08:05)
[2020-11-05] MEDS: Colchicine 0.6 MG TAB PO PRN (08:05)
[2020-11-05] MEDS: Aspirin Chewable 81 MG TAB PO SCH (08:05)
[2020-11-05] MEDS: Carvedilol 6.25 MG TAB PO SCH ×2 (08:05→20:46)
[2020-11-05] MEDS ORDERED: Polyethylene Glycol 3350 17 GM Packet PO PRN (09:18)
[2020-11-05] MEDS: Warfarin Sodium 2 MG TAB PO SCH (16:58)
[2020-11-05] MEDS: Acetaminophen 325 MG TAB PO PRN (20:45)
[2020-11-05] MEDS: diphenhydrAMINE 25 MG CAP PO SCH (20:46)
[2020-11-06 05:27] LABS: INR-International Normal Ratio 1.9; Prothrombin Time 22.5 sec (12.0-14.7)
[2020-11-06] MEDS: FLUoxetine HCl 20 MG CAP PO SCH (08:36)
[2020-11-06] MEDS: Aspirin Chewable 81 MG TAB PO SCH (08:36)
[2020-11-06] MEDS: Emollient 15 oz bottle 450 ML, Triamcinolone Acetonide 200 MG TOP SCH (08:37)
[2020-11-06] MEDS: Furosemide 40 MG TAB PO SCH (08:37)
[2020-11-06] MEDS: Carvedilol 6.25 MG TAB PO SCH (08:37)
[2020-11-06] MEDS: Lisinopril 20 MG TAB PO SCH (08:37)
[2020-11-06] MEDS: Colchicine 0.6 MG TAB PO PRN (08:37)
[2020-11-06] MEDS: Acetaminophen 325 MG TAB PO PRN (09:02)
[2020-11-06] MEDS: traMADol HCl 50 MG TAB PO PRN (09:02)
[2020-11-06 09:15] VITALS: BP 160/83; TEMP 97.8
== END 2020-11-06 12:18 | disposition home health service (06) | DRG 603 ==
LOC: MADMS 18:58
PROVIDERS: ADMIT Family Medicine; ATTEND Family Medicine
DX: L03.115 Cellulitis of right lower limb (principal); I48.20 Chronic atrial fibrillation, unspecified; I50.32 Chronic diastolic (congestive) heart failure; Z68.43 Body mass index [BMI] 50.0-59.9, adult; L97.919 Non-pressure chronic ulcer of unspecified part of right lower leg with unspecified severity; R53.81 Other malaise; R26.9 Unspecified abnormalities of gait and mobility; I27.20 Pulmonary hypertension, unspecified; G47.33 Obstructive sleep apnea (adult) (pediatric); M10.9 Gout, unspecified; R53.1 Weakness; I11.0 Hypertensive heart disease with heart failure; I87.2 Venous insufficiency (chronic) (peripheral); E66.01 Morbid (severe) obesity due to excess calories; Z79.01 Long term (current) use of anticoagulants
CPT/HCPCS: 36415; 80048; 80053; 85025; 85610; 85730; J3301; Q0163

== ENCOUNTER 2020-12-16 08:05 | Emergency (ER) | payer MEDICARE ==
[2020-12-16 08:56] LABS: INR-International Normal Ratio 2.4; PTT 55.3 sec (22.9-36.1)
[2020-12-16 08:59] LABS: #Basophils 0.1 thou/uL (0.0-0.2); #Eosinphils 0.1 thou/uL (0.0-0.7); #Monocytes 1.1 thou/uL (0.11-0.59); #Neutrophils 11.2 thou/uL (1.40-6.50); %Basophils 0.7 % (0.0-1.0); %Lymphocytes 7.4 % (21.0-51.0); %Monocytes 8.1 % (0.0-10.0); %Neutrophils 82.9 % (42.0-75.0); ALT (SGPT) 12 U/L (8-55); AST (SGOT) 13 U/L (5-34); Albumin 3.6 g/dL (3.4-4.8); Alkaline Phosphatase 76 U/L (40-110); Anion Gap 15 mmol/L (10-20); BUN (Urea Nitrogen) 15 mg/dL (8.4-25.7); Bilirubin, Total 0.8 mg/dL (0.2-1.2); Calc. Creatinine Clearance 0 mL/min (70-130); Calcium 9.6 mg/dL (7.8-10.44); Carbon Dioxide 31 mmol/L (23-31); Chloride 98 mmol/L (98-107); Globulin 2.8 g/dL (2.4-3.5); Glucose 144 mg/dL (83-110); Mean Corpuscular HGB CONC 29.5 g/dL (32.0-36.0); Mean Corpuscular Hemoglobin 27.4 pg (27.0-31.0); Mean Platelet Volume 6.9 fL (7.4-10.4); Platelet Count 335 thou/uL (130-400); Potassium 3.9 mmol/L (3.5-5.1); Protein, Total 6.4 g/dL (5.8-8.1); RBC Distribution Width 15.1 % (11.5-14.5); Red Blood Cell (RBC) Count 5.09 mill/uL (4.70-6.10); Sodium 140 mmol/L (136-145); White Blood Cell (WBC) Count 13.5 thou/uL (4.8-10.8)
[2020-12-16] MEDS ORDERED: Nystatin 500,000 UNITS/5 ML UDCUP ONE (11:45)
[2020-12-16] MEDS ORDERED: Nystatin Powder 15 GM BOT ONE (11:59)
== END 2020-12-16 13:52 | disposition home or self-care (01) ==
LOC: MADERS 08:05
DX: S92.321A Displaced fracture of second metatarsal bone, right foot, initial encounter for closed fracture (principal); M17.11 Unilateral primary osteoarthritis, right knee; I87.8 Other specified disorders of veins; E66.01 Morbid (severe) obesity due to excess calories; I48.91 Unspecified atrial fibrillation; I11.0 Hypertensive heart disease with heart failure; I50.9 Heart failure, unspecified; I25.10 Atherosclerotic heart disease of native coronary artery without angina pectoris; E78.5 Hyperlipidemia, unspecified; M10.9 Gout, unspecified; Z87.891 Personal history of nicotine dependence; Z79.899 Other long term (current) drug therapy; Z79.82 Long term (current) use of aspirin; Z79.01 Long term (current) use of anticoagulants; W19.XXXA Unspecified fall, initial encounter
CPT/HCPCS: 80053; 85025; 85610; 85730

== ENCOUNTER 2021-02-24 19:15 | Inpatient (IN) | payer MEDICARE ==
[2021-02-24] MEDS ORDERED: Nitroglycerin 0.4 MG TAB (25 Tab Bottle) SL PRN (21:29)
[2021-02-24] MEDS ORDERED: Albuterol 200 PUFF (6.7GM INHALER) INH PRN (21:30)
[2021-02-24] MEDS ORDERED: Carvedilol 6.25 MG TAB PO SCH (21:45)
[2021-02-24] MEDS: diphenhydrAMINE 25 MG CAP PO PRN (21:56)
[2021-02-24] MEDS: Acetaminophen 325 MG TAB PO PRN (21:56)
[2021-02-25 05:46] LABS: #Basophils 0.1 thou/uL (0.0-0.2); #Eosinphils 0.2 thou/uL (0.0-0.7); #Lymphocytes 1.4 thou/uL (1.20-3.40); #Monocytes 0.7 thou/uL (0.11-0.59); #Neutrophils 5.6 thou/uL (1.40-6.50); %Basophils 0.9 % (0.0-1.0); %Eosinophils 2.1 % (0.0-10.0); %Monocytes 8.9 % (0.0-10.0); %Neutrophils 71.1 % (42.0-75.0); Hemoglobin 12.5 g/dL (14.0-18.0); MDiff Complete? YES; Mean Corpuscular Hemoglobin 26.6 pg (27.0-31.0); Mean Corpuscular Volume 88.7 fL (78.0-98.0); Mean Platelet Volume 6.5 fL (7.4-10.4); Ovalocytes SLIGHT = 2-5 cells (100X) (0-1/hpf); Platelet Count 268 thou/uL (130-400); Platelet Morphology Comment Appears Adequate; RBC Distribution Width 15.1 % (11.5-14.5); RBC Morphology Normal; Red Blood Cell (RBC) Count 4.69 mill/uL (4.70-6.10); White Blood Cell (WBC) Count 7.9 thou/uL (4.8-10.8)
[2021-02-25 05:49] LABS: INR-International Normal Ratio 2.8; Prothrombin Time 29.8 sec (12.0-14.7)
[2021-02-25 05:59] LABS: ALT (SGPT) 16 U/L (8-55); AST (SGOT) 17 U/L (5-34); Albumin 3.3 g/dL (3.4-4.8); Alkaline Phosphatase 74 U/L (40-110); Anion Gap 12 mmol/L (10-20); BUN (Urea Nitrogen) 16 mg/dL (8.4-25.7); Bilirubin, Total 0.6 mg/dL (0.2-1.2); Calc. Creatinine Clearance 215 mL/min (70-130); Calcium 9.4 mg/dL (7.8-10.44); Carbon Dioxide 32 mmol/L (23-31); Chloride 105 mmol/L (98-107); Globulin 2.5 g/dL (2.4-3.5); Glucose 117 mg/dL (83-110); Potassium 3.8 mmol/L (3.5-5.1); Protein, Total 5.8 g/dL (5.8-8.1); Sodium 145 mmol/L (136-145)
[2021-02-25] MEDS: Saccharomyces boulardii 250 MG CAP PO SCH (09:12)
[2021-02-25] MEDS: Carvedilol 6.25 MG TAB PO SCH ×2 (09:12→21:18)
[2021-02-25] MEDS: Furosemide 40 MG TAB PO SCH (09:12)
[2021-02-25] MEDS: Aspirin 81 mg Enteric Coated Tablet PO SCH (09:12)
[2021-02-25] MEDS: Emollient 15 oz bottle 450 ML, Triamcinolone Acetonide 200 MG TOP SCH ×2 (09:20→21:20)
[2021-02-25] MEDS: cefTRIAXone\\ROCEPHIN 1 GM in Sodium Chloride 0.9% 100 ML IVPB SCH (11:57)
[2021-02-25] MEDS: Warfarin Sodium 5 MG TAB PO SCH (16:46)
[2021-02-25] MEDS: Acetaminophen 325 MG TAB PO PRN (21:18)
[2021-02-25] MEDS: diphenhydrAMINE 25 MG CAP PO PRN (21:18)
[2021-02-26 05:40] LABS: INR-International Normal Ratio 2.7; Prothrombin Time 29.3 sec (12.0-14.7)
[2021-02-26] MEDS: Aspirin 81 mg Enteric Coated Tablet PO SCH (08:31)
[2021-02-26] MEDS: Furosemide 40 MG TAB PO SCH (08:31)
[2021-02-26] MEDS: Saccharomyces boulardii 250 MG CAP PO SCH (08:32)
[2021-02-26] MEDS: Emollient 15 oz bottle 450 ML, Triamcinolone Acetonide 200 MG TOP SCH ×2 (08:32→21:16)
[2021-02-26] MEDS: Carvedilol 6.25 MG TAB PO SCH ×2 (08:32→21:15)
[2021-02-26] MEDS: cefTRIAXone\\ROCEPHIN 1 GM in Sodium Chloride 0.9% 100 ML IVPB SCH (11:33)
[2021-02-26] MEDS: Warfarin Sodium 5 MG TAB PO SCH (17:39)
[2021-02-27 05:36] LABS: INR-International Normal Ratio 2.6; Prothrombin Time 28.8 sec (12.0-14.7)
[2021-02-27] MEDS: Carvedilol 6.25 MG TAB PO SCH ×2 (08:56→20:19)
[2021-02-27] MEDS: Furosemide 40 MG TAB PO SCH (08:56)
[2021-02-27] MEDS: Saccharomyces boulardii 250 MG CAP PO SCH (08:56)
[2021-02-27] MEDS: Aspirin 81 mg Enteric Coated Tablet PO SCH (08:56)
[2021-02-27] MEDS: Emollient 15 oz bottle 450 ML, Triamcinolone Acetonide 200 MG TOP SCH ×2 (09:00→20:20)
[2021-02-27] MEDS: cefTRIAXone\\ROCEPHIN 1 GM in Sodium Chloride 0.9% 100 ML IVPB SCH (12:10)
[2021-02-27] MEDS: Warfarin Sodium 5 MG TAB PO SCH (17:47)
[2021-02-27] MEDS: Melatonin 3 MG TAB PO PRN (20:20)
[2021-02-28 05:30] LABS: INR-International Normal Ratio 2.9; Prothrombin Time 31.1 sec (12.0-14.7)
[2021-02-28] MEDS: Saccharomyces boulardii 250 MG CAP PO SCH (08:23)
[2021-02-28] MEDS: Carvedilol 6.25 MG TAB PO SCH ×2 (08:23→20:43)
[2021-02-28] MEDS: Aspirin 81 mg Enteric Coated Tablet PO SCH (08:23)
[2021-02-28] MEDS: Furosemide 40 MG TAB PO SCH (08:23)
[2021-02-28] MEDS: Emollient 15 oz bottle 450 ML, Triamcinolone Acetonide 200 MG TOP SCH ×2 (08:26→21:00)
[2021-02-28] MEDS: cefTRIAXone\\ROCEPHIN 1 GM in Sodium Chloride 0.9% 100 ML IVPB SCH (12:17)
[2021-02-28] MEDS: Warfarin Sodium 5 MG TAB PO SCH (17:34)
[2021-02-28] MEDS: Melatonin 3 MG TAB PO PRN (20:43)
[2021-03-01 05:25] LABS: Prothrombin Time 32.1 sec (12.0-14.7)
[2021-03-01] MEDS: Carvedilol 6.25 MG TAB PO SCH ×2 (08:59→20:51)
[2021-03-01] MEDS: Furosemide 40 MG TAB PO SCH (08:59)
[2021-03-01] MEDS: Saccharomyces boulardii 250 MG CAP PO SCH (08:59)
[2021-03-01] MEDS: Aspirin 81 mg Enteric Coated Tablet PO SCH (08:59)
[2021-03-01] MEDS: Emollient 15 oz bottle 450 ML, Triamcinolone Acetonide 200 MG TOP SCH ×2 (09:00→20:53)
[2021-03-01] MEDS ORDERED: Furosemide 20 MG TAB PO SCH (10:00)
[2021-03-01] MEDS: cefTRIAXone\\ROCEPHIN 1 GM in Sodium Chloride 0.9% 100 ML IVPB SCH (11:04)
[2021-03-01] MEDS: Warfarin Sodium 5 MG TAB PO SCH (17:44)
[2021-03-01] MEDS: Melatonin 3 MG TAB PO PRN (20:53)
[2021-03-02 05:29] LABS: INR-International Normal Ratio 3.2; Prothrombin Time 33.1 sec (12.0-14.7)
[2021-03-02] MEDS ORDERED: Silver Sulfadiazine 50 GM JAR TP PRN (08:34)
[2021-03-02] MEDS: Carvedilol 6.25 MG TAB PO SCH ×2 (08:41→20:09)
[2021-03-02] MEDS: Saccharomyces boulardii 250 MG CAP PO SCH (08:41)
[2021-03-02] MEDS: Furosemide 40 MG TAB PO SCH (08:41)
[2021-03-02] MEDS: Aspirin 81 mg Enteric Coated Tablet PO SCH (08:41)
[2021-03-02] MEDS: Emollient 15 oz bottle 450 ML, Triamcinolone Acetonide 200 MG TOP SCH ×2 (08:42→19:39)
[2021-03-02] MEDS: Silver Sulfadiazine 50 GM JAR TP SCH (10:54)
[2021-03-02] MEDS: cefTRIAXone\\ROCEPHIN 1 GM in Sodium Chloride 0.9% 100 ML IVPB SCH (11:05)
[2021-03-02] MEDS: Warfarin Sodium 7.5 MG TAB PO SCH (17:31)
[2021-03-02] MEDS: Melatonin 3 MG TAB PO PRN (20:09)
[2021-03-03 05:34] LABS: INR-International Normal Ratio 3.2; Prothrombin Time 33.4 sec (12.0-14.7)
[2021-03-03] MEDS: Saccharomyces boulardii 250 MG CAP PO SCH (07:51)
[2021-03-03] MEDS: Aspirin 81 mg Enteric Coated Tablet PO SCH (07:51)
[2021-03-03] MEDS: Carvedilol 6.25 MG TAB PO SCH ×2 (07:51→20:59)
[2021-03-03] MEDS: Furosemide 40 MG TAB PO SCH (07:51)
[2021-03-03] MEDS: Emollient 15 oz bottle 450 ML, Triamcinolone Acetonide 200 MG TOP SCH ×2 (07:52→21:00)
[2021-03-03] MEDS: cefTRIAXone\\ROCEPHIN 1 GM in Sodium Chloride 0.9% 100 ML IVPB SCH (11:41)
[2021-03-03] MEDS: Warfarin Sodium 7.5 MG TAB PO SCH (17:36)
[2021-03-03] MEDS: Melatonin 3 MG TAB PO PRN (20:59)
[2021-03-04] MEDS: traMADol HCl 50 MG TAB PO PRN (05:07)
[2021-03-04 05:43] LABS: INR-International Normal Ratio 3.5; Prothrombin Time 35.7 sec (12.0-14.7)
[2021-03-04 05:49] LABS: Hemoglobin 11.9 g/dL (14.0-18.0); Mean Corpuscular Hemoglobin 27.3 pg (27.0-31.0); Mean Corpuscular Volume 88.1 fL (78.0-98.0); RBC Distribution Width 15.7 % (11.5-14.5); Red Blood Cell (RBC) Count 4.35 mill/uL (4.70-6.10); White Blood Cell (WBC) Count 6.6 thou/uL (4.8-10.8)
[2021-03-04 05:50] LABS: #Basophils 0.1 thou/uL (0.0-0.2); #Eosinphils 0.2 thou/uL (0.0-0.7); #Lymphocytes 1.1 thou/uL (1.20-3.40); #Monocytes 0.6 thou/uL (0.11-0.59); #Neutrophils 4.7 thou/uL (1.40-6.50); %Basophils 0.8 % (0.0-1.0); %Eosinophils 2.5 % (0.0-10.0); %Lymphocytes 17.2 % (21.0-51.0); %Monocytes 9.4 % (0.0-10.0); %Neutrophils 70.1 % (42.0-75.0); Mean Platelet Volume 6.2 fL (7.4-10.4); Platelet Count 245 thou/uL (130-400)
[2021-03-04 05:51] LABS: Anion Gap 11 mmol/L (10-20); BUN (Urea Nitrogen) 20 mg/dL (8.4-25.7); Calc. Creatinine Clearance 222 mL/min (70-130); Carbon Dioxide 30 mmol/L (23-31); Chloride 105 mmol/L (98-107); Potassium 3.9 mmol/L (3.5-5.1); Sodium 142 mmol/L (136-145)
[2021-03-04 05:52] LABS: ALT (SGPT) 16 U/L (8-55); AST (SGOT) 17 U/L (5-34); Albumin 3.2 g/dL (3.4-4.8); Alkaline Phosphatase 70 U/L (40-110); Bilirubin, Total 0.5 mg/dL (0.2-1.2); CRP (Inflammatory) 0.95 mg/dL (= or < 0.5); Calcium 9.5 mg/dL (7.8-10.44); Globulin 2.3 g/dL (2.4-3.5); Glucose 119 mg/dL (83-110); Protein, Total 5.5 g/dL (5.8-8.1)
[2021-03-04] MEDS ORDERED: Mag-Al Plus 1200 MG/1200 MG/120 MG/30 ML UDCUP PO PRN (08:54)
[2021-03-04] MEDS: Carvedilol 6.25 MG TAB PO SCH ×2 (08:56→20:40)
[2021-03-04] MEDS: Aspirin 81 mg Enteric Coated Tablet PO SCH (08:56)
[2021-03-04] MEDS: Furosemide 40 MG TAB PO SCH (09:02)
[2021-03-04] MEDS: Saccharomyces boulardii 250 MG CAP PO SCH (09:05)
[2021-03-04] MEDS: Silver Sulfadiazine 50 GM JAR TP SCH (09:05)
[2021-03-04] MEDS: Emollient 15 oz bottle 450 ML, Triamcinolone Acetonide 200 MG TOP SCH ×2 (09:07→20:41)
[2021-03-04] MEDS: cefTRIAXone\\ROCEPHIN 1 GM in Sodium Chloride 0.9% 100 ML IVPB SCH (11:32)
[2021-03-04] MEDS: Warfarin Sodium 5 MG TAB PO SCH (17:35)
[2021-03-04] MEDS: Melatonin 3 MG TAB PO PRN (20:40)
[2021-03-05] MEDS: traMADol HCl 50 MG TAB PO PRN (05:18)
[2021-03-05 05:37] LABS: INR-International Normal Ratio 3.2; Prothrombin Time 33.5 sec (12.0-14.7)
[2021-03-05] MEDS: Furosemide 40 MG TAB PO SCH (08:59)
[2021-03-05] MEDS: Carvedilol 6.25 MG TAB PO SCH ×2 (08:59→20:29)
[2021-03-05] MEDS: Aspirin 81 mg Enteric Coated Tablet PO SCH (08:59)
[2021-03-05] MEDS: Saccharomyces boulardii 250 MG CAP PO SCH (09:00)
[2021-03-05] MEDS: Emollient 15 oz bottle 450 ML, Triamcinolone Acetonide 200 MG TOP SCH ×2 (09:07→20:30)
[2021-03-05] MEDS: cefTRIAXone\\ROCEPHIN 1 GM in Sodium Chloride 0.9% 100 ML IVPB SCH (11:17)
[2021-03-05] MEDS: Warfarin Sodium 5 MG TAB PO SCH (17:05)
[2021-03-05] MEDS: diphenhydrAMINE 25 MG CAP PO PRN (21:18)
[2021-03-05] MEDS: Acetaminophen 325 MG TAB PO PRN (21:21)
[2021-03-06 05:28] LABS: INR-International Normal Ratio 2.9; Prothrombin Time 30.9 sec (12.0-14.7)
[2021-03-06] MEDS: Carvedilol 6.25 MG TAB PO SCH ×2 (08:33→20:36)
[2021-03-06] MEDS: Furosemide 40 MG TAB PO SCH (08:34)
[2021-03-06] MEDS: Aspirin 81 mg Enteric Coated Tablet PO SCH (08:34)
[2021-03-06] MEDS: Saccharomyces boulardii 250 MG CAP PO SCH (08:34)
[2021-03-06] MEDS: Silver Sulfadiazine 50 GM JAR TP SCH (08:35)
[2021-03-06] MEDS: Emollient 15 oz bottle 450 ML, Triamcinolone Acetonide 200 MG TOP SCH ×2 (08:36→20:37)
[2021-03-06] MEDS: cefTRIAXone\\ROCEPHIN 1 GM in Sodium Chloride 0.9% 100 ML IVPB SCH (11:59)
[2021-03-06] MEDS: Warfarin Sodium 5 MG TAB PO SCH (17:21)
[2021-03-06] MEDS: Melatonin 3 MG TAB PO PRN (20:37)
[2021-03-06] MEDS: Colchicine 0.6 MG TAB PO PRN (20:38)
[2021-03-07 05:29] LABS: INR-International Normal Ratio 2.6; Prothrombin Time 28.2 sec (12.0-14.7)
[2021-03-07] MEDS: Aspirin 81 mg Enteric Coated Tablet PO SCH (10:10)
[2021-03-07] MEDS: Saccharomyces boulardii 250 MG CAP PO SCH (10:10)
[2021-03-07] MEDS: Furosemide 40 MG TAB PO SCH (10:10)
[2021-03-07] MEDS: Carvedilol 6.25 MG TAB PO SCH ×2 (10:10→20:43)
[2021-03-07] MEDS: Emollient 15 oz bottle 450 ML, Triamcinolone Acetonide 200 MG TOP SCH ×2 (10:14→22:00)
[2021-03-07] MEDS: cefTRIAXone\\ROCEPHIN 1 GM in Sodium Chloride 0.9% 100 ML IVPB SCH (12:54)
[2021-03-07] MEDS: Warfarin Sodium 5 MG TAB PO SCH (17:35)
[2021-03-07] MEDS: Colchicine 0.6 MG TAB PO PRN (20:44)
[2021-03-07] MEDS: Melatonin 3 MG TAB PO PRN (20:45)
[2021-03-08 05:34] LABS: INR-International Normal Ratio 2.4; Prothrombin Time 26.3 sec (12.0-14.7)
[2021-03-08] MEDS: Aspirin 81 mg Enteric Coated Tablet PO SCH (10:05)
[2021-03-08] MEDS: Carvedilol 6.25 MG TAB PO SCH ×2 (10:05→21:11)
[2021-03-08] MEDS: Saccharomyces boulardii 250 MG CAP PO SCH (10:05)
[2021-03-08] MEDS: Furosemide 40 MG TAB PO SCH (10:05)
[2021-03-08] MEDS: Emollient 15 oz bottle 450 ML, Triamcinolone Acetonide 200 MG TOP SCH ×2 (10:10→21:13)
[2021-03-08] MEDS: cefTRIAXone\\ROCEPHIN 1 GM in Sodium Chloride 0.9% 100 ML IVPB SCH (12:32)
[2021-03-08] MEDS: Warfarin Sodium 5 MG TAB PO SCH (17:54)
[2021-03-09 05:34] LABS: Prothrombin Time 23.5 sec (12.0-14.7)
[2021-03-09] MEDS: traMADol HCl 50 MG TAB PO PRN (05:50)
[2021-03-09] MEDS: Furosemide 40 MG TAB PO SCH (08:41)
[2021-03-09] MEDS: Carvedilol 6.25 MG TAB PO SCH ×2 (08:41→21:06)
[2021-03-09] MEDS: Aspirin 81 mg Enteric Coated Tablet PO SCH (08:41)
[2021-03-09] MEDS: Saccharomyces boulardii 250 MG CAP PO SCH (08:42)
[2021-03-09] MEDS: Emollient 15 oz bottle 450 ML, Triamcinolone Acetonide 200 MG TOP SCH ×2 (08:42→21:12)
[2021-03-09] MEDS: Silver Sulfadiazine 50 GM JAR TP SCH (08:43)
[2021-03-09] MEDS: cefTRIAXone\\ROCEPHIN 1 GM in Sodium Chloride 0.9% 100 ML IVPB SCH (11:34)
[2021-03-09] MEDS: Warfarin Sodium 5 MG TAB PO SCH (17:01)
[2021-03-09] MEDS: Melatonin 3 MG TAB PO PRN (21:06)
[2021-03-10] MEDS: Polyethylene Glycol 3350 17 GM Packet PO PRN (02:51)
[2021-03-10 05:52] LABS: INR-International Normal Ratio 2.2; Prothrombin Time 23.5 sec (12.0-14.7)
[2021-03-10 06:02] LABS: ALT (SGPT) 15 U/L (8-55); AST (SGOT) 16 U/L (5-34); Albumin 3.4 g/dL (3.4-4.8); Alkaline Phosphatase 74 U/L (40-110); Anion Gap 10 mmol/L (10-20); BUN (Urea Nitrogen) 17 mg/dL (8.4-25.7); Bilirubin, Total 0.5 mg/dL (0.2-1.2); CRP (Inflammatory) 0.53 mg/dL (= or < 0.5); Calc. Creatinine Clearance 205 mL/min (70-130); Calcium 9.5 mg/dL (7.8-10.44); Carbon Dioxide 30 mmol/L (23-31); Chloride 105 mmol/L (98-107); Globulin 2.4 g/dL (2.4-3.5); Glucose 150 mg/dL (83-110); Potassium 3.9 mmol/L (3.5-5.1); Protein, Total 5.8 g/dL (5.8-8.1); Sodium 141 mmol/L (136-145)
[2021-03-10 06:43] LABS: #Eosinphils 0.2 thou/uL (0.0-0.7); #Lymphocytes 1.2 thou/uL (1.20-3.40); #Monocytes 0.6 thou/uL (0.11-0.59); #Neutrophils 4.6 thou/uL (1.40-6.50); %Basophils 0.6 % (0.0-1.0); %Eosinophils 3.4 % (0.0-10.0); %Lymphocytes 18.4 % (21.0-51.0); %Monocytes 8.9 % (0.0-10.0); %Neutrophils 68.7 % (42.0-75.0); Hemoglobin 11.9 g/dL (14.0-18.0); Mean Corpuscular HGB CONC 29.6 g/dL (32.0-36.0); Mean Corpuscular Hemoglobin 26.3 pg (27.0-31.0); Mean Corpuscular Volume 88.9 fL (78.0-98.0); Mean Platelet Volume 6.1 fL (7.4-10.4); Platelet Count 260 thou/uL (130-400); RBC Distribution Width 15.7 % (11.5-14.5); Red Blood Cell (RBC) Count 4.54 mill/uL (4.70-6.10); White Blood Cell (WBC) Count 6.6 thou/uL (4.8-10.8)
[2021-03-10] MEDS: Saccharomyces boulardii 250 MG CAP PO SCH (08:30)
[2021-03-10] MEDS: Emollient 15 oz bottle 450 ML, Triamcinolone Acetonide 200 MG TOP SCH ×2 (08:30→20:56)
[2021-03-10] MEDS: Furosemide 40 MG TAB PO SCH (08:30)
[2021-03-10] MEDS: Carvedilol 6.25 MG TAB PO SCH ×2 (08:30→20:59)
[2021-03-10] MEDS: Aspirin 81 mg Enteric Coated Tablet PO SCH (08:30)
[2021-03-10] MEDS: cefTRIAXone\\ROCEPHIN 1 GM in Sodium Chloride 0.9% 100 ML IVPB SCH (11:46)
[2021-03-10] MEDS: Warfarin Sodium 5 MG TAB PO SCH (17:13)
[2021-03-10] MEDS: Melatonin 3 MG TAB PO PRN (21:05)
[2021-03-10] MEDS: diphenhydrAMINE 25 MG CAP PO PRN (21:05)
[2021-03-10] MEDS: Acetaminophen 325 MG TAB PO PRN (21:05)
[2021-03-11 05:48] LABS: Prothrombin Time 22.5 sec (12.0-14.7)
[2021-03-11] MEDS: Carvedilol 6.25 MG TAB PO SCH ×2 (08:32→20:49)
[2021-03-11] MEDS: Saccharomyces boulardii 250 MG CAP PO SCH (08:32)
[2021-03-11] MEDS: Aspirin 81 mg Enteric Coated Tablet PO SCH (08:32)
[2021-03-11] MEDS: Furosemide 40 MG TAB PO SCH (08:32)
[2021-03-11] MEDS: traMADol HCl 50 MG TAB PO PRN (08:42)
[2021-03-11] MEDS: Silver Sulfadiazine 50 GM JAR TP SCH (11:15)
[2021-03-11] MEDS: Emollient 15 oz bottle 450 ML, Triamcinolone Acetonide 200 MG TOP SCH ×2 (11:16→20:50)
[2021-03-11] MEDS: cefTRIAXone\\ROCEPHIN 1 GM in Sodium Chloride 0.9% 100 ML IVPB SCH (11:41)
[2021-03-11] MEDS: Warfarin Sodium 5 MG TAB PO SCH (17:10)
[2021-03-11] MEDS: Acetaminophen 325 MG TAB PO PRN (20:48)
[2021-03-11] MEDS: diphenhydrAMINE 25 MG CAP PO PRN (20:48)
[2021-03-11] MEDS: Melatonin 3 MG TAB PO PRN (20:48)
[2021-03-12 05:26] LABS: INR-International Normal Ratio 1.8; Prothrombin Time 21.3 sec (12.0-14.7)
[2021-03-12] MEDS: Polyethylene Glycol 3350 17 GM Packet PO PRN (06:13)
[2021-03-12] MEDS: Carvedilol 6.25 MG TAB PO SCH ×2 (08:24→20:33)
[2021-03-12] MEDS: Aspirin 81 mg Enteric Coated Tablet PO SCH (08:24)
[2021-03-12] MEDS: Saccharomyces boulardii 250 MG CAP PO SCH (08:24)
[2021-03-12] MEDS: Furosemide 40 MG TAB PO SCH (08:24)
[2021-03-12] MEDS: Emollient 15 oz bottle 450 ML, Triamcinolone Acetonide 200 MG TOP SCH ×2 (08:28→20:33)
[2021-03-12] MEDS: Cephalexin 250 MG CAP PO SCH ×2 (10:53→20:33)
[2021-03-12] MEDS: Warfarin Sodium 7.5 MG TAB PO SCH (17:43)
[2021-03-12] MEDS: Acetaminophen 325 MG TAB PO PRN (20:32)
[2021-03-12] MEDS: Melatonin 3 MG TAB PO PRN (20:33)
[2021-03-12] MEDS: diphenhydrAMINE 25 MG CAP PO PRN (20:33)
[2021-03-13] MEDS: Saccharomyces boulardii 250 MG CAP PO SCH (08:28)
[2021-03-13] MEDS: Furosemide 40 MG TAB PO SCH (08:28)
[2021-03-13] MEDS: Aspirin 81 mg Enteric Coated Tablet PO SCH (08:28)
[2021-03-13] MEDS: Carvedilol 6.25 MG TAB PO SCH ×2 (08:29→21:35)
[2021-03-13] MEDS: Cephalexin 250 MG CAP PO SCH ×2 (08:29→21:35)
[2021-03-13] MEDS: Emollient 15 oz bottle 450 ML, Triamcinolone Acetonide 200 MG TOP SCH ×2 (08:29→22:15)
[2021-03-13] MEDS: Silver Sulfadiazine 50 GM JAR TP SCH (08:29)
[2021-03-13 11:40] LABS: INR-International Normal Ratio 1.8; Prothrombin Time 20.8 sec (12.0-14.7)
[2021-03-13] MEDS: Furosemide 20 MG TAB PO PRN (15:18)
[2021-03-13] MEDS: Warfarin Sodium 7.5 MG TAB PO SCH (17:00)
[2021-03-13] MEDS: Acetaminophen 325 MG TAB PO PRN (21:35)
[2021-03-13] MEDS: diphenhydrAMINE 25 MG CAP PO PRN (21:35)
[2021-03-13] MEDS: Melatonin 3 MG TAB PO PRN (21:35)
[2021-03-14 05:28] LABS: INR-International Normal Ratio 1.9; Prothrombin Time 21.9 sec (12.0-14.7)
[2021-03-14] MEDS: Emollient 15 oz bottle 450 ML, Triamcinolone Acetonide 200 MG TOP SCH ×2 (08:12→20:45)
[2021-03-14] MEDS: Furosemide 40 MG TAB PO SCH (08:12)
[2021-03-14] MEDS: Saccharomyces boulardii 250 MG CAP PO SCH (08:12)
[2021-03-14] MEDS: Cephalexin 250 MG CAP PO SCH ×2 (08:12→20:45)
[2021-03-14] MEDS: Aspirin 81 mg Enteric Coated Tablet PO SCH (08:12)
[2021-03-14] MEDS: Carvedilol 6.25 MG TAB PO SCH ×2 (08:12→20:45)
[2021-03-14] MEDS: Warfarin Sodium 7.5 MG TAB PO SCH (17:07)
[2021-03-14] MEDS: Melatonin 3 MG TAB PO PRN (20:46)
[2021-03-14] MEDS: diphenhydrAMINE 25 MG CAP PO PRN (20:46)
[2021-03-14] MEDS: Acetaminophen 325 MG TAB PO PRN (20:46)
[2021-03-15 05:29] LABS: INR-International Normal Ratio 2.1; Prothrombin Time 23.3 sec (12.0-14.7)
[2021-03-15] MEDS: Furosemide 40 MG TAB PO SCH (06:23)
[2021-03-15] MEDS: Saccharomyces boulardii 250 MG CAP PO SCH (08:20)
[2021-03-15] MEDS: Aspirin 81 mg Enteric Coated Tablet PO SCH (08:20)
[2021-03-15] MEDS: Carvedilol 6.25 MG TAB PO SCH ×2 (08:20→20:45)
[2021-03-15] MEDS: Cephalexin 250 MG CAP PO SCH ×2 (08:20→20:46)
[2021-03-15] MEDS: Emollient 15 oz bottle 450 ML, Triamcinolone Acetonide 200 MG TOP SCH ×2 (08:21→20:51)
[2021-03-15] MEDS: Warfarin Sodium 7.5 MG TAB PO SCH (17:37)
[2021-03-15] MEDS: diphenhydrAMINE 25 MG CAP PO PRN (20:45)
[2021-03-15] MEDS: Melatonin 3 MG TAB PO PRN (20:45)
[2021-03-15] MEDS: Acetaminophen 325 MG TAB PO PRN (20:51)
[2021-03-16] MEDS: traMADol HCl 50 MG TAB PO PRN (06:02)
[2021-03-16] MEDS: Furosemide 40 MG TAB PO SCH (06:02)
[2021-03-16 07:07] LABS: Prothrombin Time 22.5 sec (12.0-14.7)
[2021-03-16] MEDS: Aspirin 81 mg Enteric Coated Tablet PO SCH (09:06)
[2021-03-16] MEDS: Cephalexin 250 MG CAP PO SCH ×2 (09:06→21:22)
[2021-03-16] MEDS: Saccharomyces boulardii 250 MG CAP PO SCH (09:06)
[2021-03-16] MEDS: Carvedilol 6.25 MG TAB PO SCH ×2 (09:06→21:22)
[2021-03-16 12:00] VITALS: BMI 50.8
[2021-03-16] MEDS: Silver Sulfadiazine 50 GM JAR TP SCH (17:42)
[2021-03-16] MEDS: Emollient 15 oz bottle 450 ML, Triamcinolone Acetonide 200 MG TOP SCH ×2 (17:42→21:23)
[2021-03-16] MEDS: Warfarin Sodium 7.5 MG TAB PO SCH (17:54)
[2021-03-17] MEDS: Furosemide 40 MG TAB PO SCH (05:39)
[2021-03-17 05:49] LABS: Prothrombin Time 23.1 sec (12.0-14.7)
[2021-03-17] MEDS: traMADol HCl 50 MG TAB PO PRN ×2 (06:30→20:19)
[2021-03-17] MEDS: Cephalexin 250 MG CAP PO SCH ×2 (09:12→20:16)
[2021-03-17] MEDS: Aspirin 81 mg Enteric Coated Tablet PO SCH (09:12)
[2021-03-17] MEDS: Carvedilol 6.25 MG TAB PO SCH ×2 (09:12→20:16)
[2021-03-17] MEDS: Saccharomyces boulardii 250 MG CAP PO SCH (09:12)
[2021-03-17] MEDS: Emollient 15 oz bottle 450 ML, Triamcinolone Acetonide 200 MG TOP SCH ×2 (09:18→20:17)
[2021-03-17] MEDS: Furosemide 20 MG TAB PO PRN (14:37)
[2021-03-17] MEDS: Warfarin Sodium 7.5 MG TAB PO SCH (17:23)
[2021-03-17] MEDS: Melatonin 3 MG TAB PO PRN (20:16)
[2021-03-18 05:30] LABS: INR-International Normal Ratio 2.1; Prothrombin Time 23.3 sec (12.0-14.7)
[2021-03-18] MEDS: Polyethylene Glycol 3350 17 GM Packet PO PRN ×2 (05:45→13:26)
[2021-03-18] MEDS: traMADol HCl 50 MG TAB PO PRN ×2 (05:45→21:30)
[2021-03-18] MEDS: Furosemide 40 MG TAB PO SCH (05:45)
[2021-03-18] MEDS: Saccharomyces boulardii 250 MG CAP PO SCH (08:15)
[2021-03-18] MEDS: Aspirin 81 mg Enteric Coated Tablet PO SCH (08:15)
[2021-03-18] MEDS: Cephalexin 250 MG CAP PO SCH ×2 (08:15→21:30)
[2021-03-18] MEDS: Carvedilol 6.25 MG TAB PO SCH ×2 (08:15→21:31)
[2021-03-18] MEDS: Silver Sulfadiazine 50 GM JAR TP SCH (12:26)
[2021-03-18] MEDS: Emollient 15 oz bottle 450 ML, Triamcinolone Acetonide 200 MG TOP SCH ×2 (12:30→21:35)
[2021-03-18] MEDS: Warfarin Sodium 7.5 MG TAB PO SCH (17:27)
[2021-03-18] MEDS: Melatonin 3 MG TAB PO PRN (21:30)
[2021-03-19] MEDS: Polyethylene Glycol 3350 17 GM Packet PO PRN (02:56)
[2021-03-19] MEDS: Furosemide 40 MG TAB PO SCH (05:47)
[2021-03-19 07:41] LABS: INR-International Normal Ratio 1.9; Prothrombin Time 22.2 sec (12.0-14.7)
[2021-03-19] MEDS: Carvedilol 6.25 MG TAB PO SCH ×2 (08:49→20:40)
[2021-03-19] MEDS: Cephalexin 250 MG CAP PO SCH ×2 (08:49→20:40)
[2021-03-19] MEDS: Aspirin 81 mg Enteric Coated Tablet PO SCH (08:49)
[2021-03-19] MEDS: Saccharomyces boulardii 250 MG CAP PO SCH (08:49)
[2021-03-19] MEDS: Emollient 15 oz bottle 450 ML, Triamcinolone Acetonide 200 MG TOP SCH ×2 (08:50→20:47)
[2021-03-19] MEDS: Warfarin Sodium 7.5 MG TAB PO SCH (17:00)
[2021-03-19] MEDS: Melatonin 3 MG TAB PO PRN (20:52)
[2021-03-19] MEDS: traMADol HCl 50 MG TAB PO PRN (20:52)
[2021-03-20] MEDS: Polyethylene Glycol 3350 17 GM Packet PO PRN (04:22)
[2021-03-20 05:29] LABS: Prothrombin Time 22.6 sec (12.0-14.7)
[2021-03-20] MEDS: Furosemide 40 MG TAB PO SCH (05:47)
[2021-03-20] MEDS: traMADol HCl 50 MG TAB PO PRN ×2 (05:47→20:14)
[2021-03-20] MEDS: Saccharomyces boulardii 250 MG CAP PO SCH (08:59)
[2021-03-20] MEDS: Cephalexin 250 MG CAP PO SCH ×2 (08:59→20:17)
[2021-03-20] MEDS: Aspirin 81 mg Enteric Coated Tablet PO SCH (09:00)
[2021-03-20] MEDS: Carvedilol 6.25 MG TAB PO SCH ×2 (09:01→20:17)
[2021-03-20] MEDS: Silver Sulfadiazine 50 GM JAR TP SCH (09:03)
[2021-03-20] MEDS: Emollient 15 oz bottle 450 ML, Triamcinolone Acetonide 200 MG TOP SCH ×2 (09:04→20:10)
[2021-03-20] MEDS: Warfarin Sodium 7.5 MG TAB PO SCH (17:33)
[2021-03-20] MEDS: Melatonin 3 MG TAB PO PRN (20:17)
[2021-03-21 05:30] LABS: INR-International Normal Ratio 2.1
[2021-03-21] MEDS: Furosemide 40 MG TAB PO SCH (05:37)
[2021-03-21] MEDS: Cephalexin 250 MG CAP PO SCH ×2 (09:33→20:51)
[2021-03-21] MEDS: Carvedilol 6.25 MG TAB PO SCH ×2 (09:33→20:53)
[2021-03-21] MEDS: Emollient 15 oz bottle 450 ML, Triamcinolone Acetonide 200 MG TOP SCH ×2 (09:33→20:57)
[2021-03-21] MEDS: Saccharomyces boulardii 250 MG CAP PO SCH (09:33)
[2021-03-21] MEDS: Aspirin 81 mg Enteric Coated Tablet PO SCH (09:33)
[2021-03-21] MEDS: Warfarin Sodium 7.5 MG TAB PO SCH (17:21)
[2021-03-21] MEDS: Melatonin 3 MG TAB PO PRN (20:51)
[2021-03-21] MEDS: traMADol HCl 50 MG TAB PO PRN (20:52)
[2021-03-22] MEDS: Furosemide 40 MG TAB PO SCH (05:03)
[2021-03-22] MEDS: traMADol HCl 50 MG TAB PO PRN ×2 (05:03→16:50)
[2021-03-22 05:27] LABS: INR-International Normal Ratio 2.2; Prothrombin Time 24.8 sec (12.0-14.7)
[2021-03-22] MEDS: Aspirin 81 mg Enteric Coated Tablet PO SCH (07:58)
[2021-03-22] MEDS: Carvedilol 6.25 MG TAB PO SCH ×2 (07:58→20:12)
[2021-03-22] MEDS: Cephalexin 250 MG CAP PO SCH ×2 (07:58→20:13)
[2021-03-22] MEDS: Furosemide 20 MG TAB PO PRN (07:58)
[2021-03-22] MEDS: Saccharomyces boulardii 250 MG CAP PO SCH (07:59)
[2021-03-22] MEDS: Emollient 15 oz bottle 450 ML, Triamcinolone Acetonide 200 MG TOP SCH ×2 (08:01→20:52)
[2021-03-22] MEDS: Polyethylene Glycol 3350 17 GM Packet PO PRN (15:20)
[2021-03-22] MEDS: Warfarin Sodium 7.5 MG TAB PO SCH (16:51)
[2021-03-22] MEDS: Acetaminophen 325 MG TAB PO PRN (20:13)
[2021-03-22] MEDS: diphenhydrAMINE 25 MG CAP PO PRN (20:14)
[2021-03-22] MEDS: Colchicine 0.6 MG TAB PO PRN (20:50)
[2021-03-23] MEDS: Furosemide 40 MG TAB PO SCH ×2 (05:36→08:22)
[2021-03-23 05:40] LABS: INR-International Normal Ratio 2.3; Prothrombin Time 25.7 sec (12.0-14.7)
[2021-03-23] MEDS: traMADol HCl 50 MG TAB PO PRN ×2 (05:54→20:45)
[2021-03-23] MEDS: Aspirin 81 mg Enteric Coated Tablet PO SCH (08:21)
[2021-03-23] MEDS: Carvedilol 6.25 MG TAB PO SCH ×2 (08:21→20:32)
[2021-03-23] MEDS: Saccharomyces boulardii 250 MG CAP PO SCH (08:21)
[2021-03-23] MEDS: Cephalexin 250 MG CAP PO SCH ×2 (08:22→20:32)
[2021-03-23] MEDS: Emollient 15 oz bottle 450 ML, Triamcinolone Acetonide 200 MG TOP SCH ×2 (08:53→23:02)
[2021-03-23] MEDS: Silver Sulfadiazine 50 GM JAR TP SCH (08:53)
[2021-03-23] MEDS: Warfarin Sodium 7.5 MG TAB PO SCH (17:21)
[2021-03-23] MEDS: Melatonin 3 MG TAB PO PRN (20:32)
[2021-03-23] MEDS: Fluticasone Propionate Nasal Spray 16 gm Bottle NASAL SCH (20:32)
[2021-03-24] MEDS: Colchicine 0.6 MG TAB PO PRN ×2 (03:08→21:09)
[2021-03-24 05:32] LABS: INR-International Normal Ratio 2.4; Prothrombin Time 26.5 sec (12.0-14.7)
[2021-03-24] MEDS: Furosemide 40 MG TAB PO SCH (05:37)
[2021-03-24] MEDS: traMADol HCl 50 MG TAB PO PRN ×2 (05:37→20:44)
[2021-03-24] MEDS: Aspirin 81 mg Enteric Coated Tablet PO SCH (09:05)
[2021-03-24] MEDS: Cephalexin 250 MG CAP PO SCH ×2 (09:05→20:46)
[2021-03-24] MEDS: Carvedilol 6.25 MG TAB PO SCH ×2 (09:05→20:45)
[2021-03-24] MEDS: Saccharomyces boulardii 250 MG CAP PO SCH (09:05)
[2021-03-24] MEDS: Emollient 15 oz bottle 450 ML, Triamcinolone Acetonide 200 MG TOP SCH ×2 (09:08→20:47)
[2021-03-24] MEDS: Fluticasone Propionate Nasal Spray 16 gm Bottle NASAL SCH ×2 (09:10→20:44)
[2021-03-24] MEDS: Warfarin Sodium 7.5 MG TAB PO SCH (17:18)
[2021-03-24] MEDS: Melatonin 3 MG TAB PO PRN (20:45)
[2021-03-25 05:38] LABS: INR-International Normal Ratio 2.6; Prothrombin Time 27.8 sec (12.0-14.7)
[2021-03-25 05:41] LABS: #Basophils 0.1 thou/uL (0.0-0.2); #Eosinphils 0.2 thou/uL (0.0-0.7); #Lymphocytes 1.6 thou/uL (1.20-3.40); #Monocytes 0.7 thou/uL (0.11-0.59); #Neutrophils 4.7 thou/uL (1.40-6.50); %Basophils 1.2 % (0.0-1.0); %Eosinophils 2.6 % (0.0-10.0); %Lymphocytes 22.3 % (21.0-51.0); Mean Corpuscular HGB CONC 29.6 g/dL (32.0-36.0); Mean Corpuscular Hemoglobin 26.3 pg (27.0-31.0); Mean Corpuscular Volume 89.1 fL (78.0-98.0); Mean Platelet Volume 6.8 fL (7.4-10.4); Platelet Count 292 thou/uL (130-400); RBC Distribution Width 15.8 % (11.5-14.5); Red Blood Cell (RBC) Count 4.94 mill/uL (4.70-6.10); White Blood Cell (WBC) Count 7.3 thou/uL (4.8-10.8)
[2021-03-25] MEDS: Furosemide 40 MG TAB PO SCH (05:43)
[2021-03-25] MEDS: traMADol HCl 50 MG TAB PO PRN ×2 (05:43→19:59)
[2021-03-25 05:50] LABS: ALT (SGPT) 14 U/L (8-55); AST (SGOT) 19 U/L (5-34); Albumin 3.4 g/dL (3.4-4.8); Alkaline Phosphatase 76 U/L (40-110); Anion Gap 14 mmol/L (10-20); BUN (Urea Nitrogen) 16 mg/dL (8.4-25.7); Bilirubin, Total 0.5 mg/dL (0.2-1.2); CRP (Inflammatory) 1.45 mg/dL (= or < 0.5); Calc. Creatinine Clearance 202 mL/min (70-130); Calcium 9.9 mg/dL (7.8-10.44); Carbon Dioxide 26 mmol/L (23-31); Chloride 105 mmol/L (98-107); Globulin 2.8 g/dL (2.4-3.5); Glucose 123 mg/dL (83-110); Potassium 3.7 mmol/L (3.5-5.1); Protein, Total 6.2 g/dL (5.8-8.1); Sodium 141 mmol/L (136-145)
[2021-03-25] MEDS: Aspirin 81 mg Enteric Coated Tablet PO SCH (08:53)
[2021-03-25] MEDS: Carvedilol 6.25 MG TAB PO SCH ×2 (08:54→20:01)
[2021-03-25] MEDS: Fluticasone Propionate Nasal Spray 16 gm Bottle NASAL SCH ×2 (08:54→20:01)
[2021-03-25] MEDS: Saccharomyces boulardii 250 MG CAP PO SCH (08:54)
[2021-03-25] MEDS: Cephalexin 250 MG CAP PO SCH ×2 (08:54→20:01)
[2021-03-25] MEDS: Emollient 15 oz bottle 450 ML, Triamcinolone Acetonide 200 MG TOP SCH ×2 (08:56→20:02)
[2021-03-25] MEDS: Silver Sulfadiazine 50 GM JAR TP SCH (08:56)
[2021-03-25] MEDS: Warfarin Sodium 7.5 MG TAB PO SCH (16:55)
[2021-03-25] MEDS: Melatonin 3 MG TAB PO PRN (20:00)
[2021-03-26 05:29] LABS: INR-International Normal Ratio 2.6; Prothrombin Time 28.2 sec (12.0-14.7)
[2021-03-26] MEDS: Furosemide 40 MG TAB PO SCH (06:12)
[2021-03-26] MEDS: Saccharomyces boulardii 250 MG CAP PO SCH (08:45)
[2021-03-26] MEDS: Aspirin 81 mg Enteric Coated Tablet PO SCH (08:46)
[2021-03-26] MEDS: Cephalexin 250 MG CAP PO SCH ×2 (08:46→20:04)
[2021-03-26] MEDS: Carvedilol 6.25 MG TAB PO SCH ×2 (08:46→20:04)
[2021-03-26] MEDS: Fluticasone Propionate Nasal Spray 16 gm Bottle NASAL SCH ×2 (08:46→20:50)
[2021-03-26] MEDS: traMADol HCl 50 MG TAB PO PRN ×2 (08:46→20:05)
[2021-03-26] MEDS: Emollient 15 oz bottle 450 ML, Triamcinolone Acetonide 200 MG TOP SCH ×2 (08:47→20:53)
[2021-03-26] MEDS: Warfarin Sodium 7.5 MG TAB PO SCH (16:29)
[2021-03-26] MEDS: Melatonin 3 MG TAB PO PRN (20:06)
[2021-03-26] MEDS: Nystatin Powder 15 GM BOT TOP SCH (20:51)
[2021-03-27] MEDS: Furosemide 40 MG TAB PO SCH (05:56)
[2021-03-27] MEDS: traMADol HCl 50 MG TAB PO PRN (05:57)
[2021-03-27 07:15] VITALS: BP 136/83; TEMP 98.5
[2021-03-27] MEDS: Cephalexin 250 MG CAP PO SCH (08:26)
[2021-03-27] MEDS: Saccharomyces boulardii 250 MG CAP PO SCH (08:26)
[2021-03-27] MEDS: Aspirin 81 mg Enteric Coated Tablet PO SCH (08:26)
[2021-03-27] MEDS: Carvedilol 6.25 MG TAB PO SCH (08:27)
[2021-03-27] MEDS: Silver Sulfadiazine 50 GM JAR TP SCH (08:29)
[2021-03-27] MEDS: Nystatin Powder 15 GM BOT TOP SCH (08:29)
[2021-03-27] MEDS: Emollient 15 oz bottle 450 ML, Triamcinolone Acetonide 200 MG TOP SCH (08:30)
[2021-03-27] MEDS: Fluticasone Propionate Nasal Spray 16 gm Bottle NASAL SCH (08:37)
== END 2021-03-27 13:35 | disposition home health service (06) | DRG 603 ==
LOC: MADMS 19:15
PROVIDERS: ADMIT Family Medicine; ATTEND Family Medicine
PROC: 5A09357 Assistance with Respiratory Ventilation, Less than 24 Consecutive Hours, Continuous Positive Airway Pressure (ICD-10-PCS; principal; 2021-02-27)
DX: L03.115 Cellulitis of right lower limb (principal); L97.929 Non-pressure chronic ulcer of unspecified part of left lower leg with unspecified severity; L97.919 Non-pressure chronic ulcer of unspecified part of right lower leg with unspecified severity; I48.20 Chronic atrial fibrillation, unspecified; I50.32 Chronic diastolic (congestive) heart failure; R78.81 Bacteremia; Z68.43 Body mass index [BMI] 50.0-59.9, adult; R53.81 Other malaise; I87.2 Venous insufficiency (chronic) (peripheral); E66.01 Morbid (severe) obesity due to excess calories; I27.20 Pulmonary hypertension, unspecified; G47.33 Obstructive sleep apnea (adult) (pediatric); M10.9 Gout, unspecified; M17.0 Bilateral primary osteoarthritis of knee; M25.70 Osteophyte, unspecified joint; J44.9 Chronic obstructive pulmonary disease, unspecified; I11.0 Hypertensive heart disease with heart failure; R19.7 Diarrhea, unspecified; S82.831S Other fracture of upper and lower end of right fibula, sequela; Z79.82 Long term (current) use of aspirin; Z79.01 Long term (current) use of anticoagulants; Z79.899 Other long term (current) drug therapy; Z88.0 Allergy status to penicillin; Z91.041 Radiographic dye allergy status
CPT/HCPCS: 36415; 80053; 85025; 85610; 85652; 86140; 87324; 87449; 87493; J0696; J3301; J3490; J7620

== ENCOUNTER 2021-03-29 00:55 | Emergency (ER) | payer MEDICARE | END 2021-03-29 02:40 | disposition home or self-care (01) | LOC: MADERS 00:55 | DX: S30.0XXA Contusion of lower back and pelvis, initial encounter (principal); S40.021A Contusion of right upper arm, initial encounter; M79.671 Pain in right foot; I89.0 Lymphedema, not elsewhere classified; E66.01 Morbid (severe) obesity due to excess calories; I48.91 Unspecified atrial fibrillation; E78.5 Hyperlipidemia, unspecified; I25.10 Atherosclerotic heart disease of native coronary artery without angina pectoris; I11.0 Hypertensive heart disease with heart failure; I50.9 Heart failure, unspecified; M10.9 Gout, unspecified; Z87.891 Personal history of nicotine dependence; W18.11XA Fall from or off toilet without subsequent striking against object, initial encounter; Y92.002 Bathroom of unspecified non-institutional (private) residence as the place of occurrence of the external cause ==

== ENCOUNTER 2021-04-08 15:16 | Outpatient (CLI) | payer MEDICARE ==
[2021-04-08 16:58] LABS: Prothrombin Time 46.8 sec (12.0-14.7)
[2021-04-08 17:04] LABS: #Basophils 0.1 thou/uL (0.0-0.2); #Eosinphils 0.2 thou/uL (0.0-0.7); #Lymphocytes 1.5 thou/uL (1.20-3.40); #Monocytes 0.7 thou/uL (0.11-0.59); #Neutrophils 9.1 thou/uL (1.40-6.50); %Basophils 0.7 % (0.0-1.0); %Eosinophils 1.5 % (0.0-10.0); %Lymphocytes 13.1 % (21.0-51.0); %Monocytes 6.3 % (0.0-10.0); %Neutrophils 78.3 % (42.0-75.0); Hemoglobin 13.8 g/dL (14.0-18.0); Mean Corpuscular HGB CONC 30.1 g/dL (32.0-36.0); Mean Corpuscular Hemoglobin 26.4 pg (27.0-31.0); Mean Corpuscular Volume 87.8 fL (78.0-98.0); Mean Platelet Volume 5.7 fL (7.4-10.4); Platelet Count 346 thou/uL (130-400); RBC Distribution Width 15.9 % (11.5-14.5); Red Blood Cell (RBC) Count 5.22 mill/uL (4.70-6.10); White Blood Cell (WBC) Count 11.7 thou/uL (4.8-10.8)
[2021-04-08 17:05] LABS: Anion Gap 17 mmol/L (10-20); BUN (Urea Nitrogen) 14 mg/dL (8.4-25.7); Calc. Creatinine Clearance 0 mL/min (70-130); Calcium 9.6 mg/dL (7.8-10.44); Carbon Dioxide 27 mmol/L (23-31); Chloride 102 mmol/L (98-107); Glucose 95 mg/dL (83-110); Potassium 3.5 mmol/L (3.5-5.1); Sodium 142 mmol/L (136-145)
== END 2021-04-08 15:17 | disposition home or self-care (01) ==
LOC: MADLAB 15:16
PROVIDERS: ATTEND Family Medicine
DX: Z51.81 Encounter for therapeutic drug level monitoring (principal); I50.32 Chronic diastolic (congestive) heart failure; I48.20 Chronic atrial fibrillation, unspecified; Z79.82 Long term (current) use of aspirin
CPT/HCPCS: 80048; 85025; 85610

== ENCOUNTER 2021-04-13 15:53 | Outpatient (CLI) | payer MEDICARE ==
[2021-04-13 16:13] LABS: INR-International Normal Ratio 3.1; Prothrombin Time 31.8 sec (12.0-14.7)
== END 2021-04-13 15:54 | disposition home or self-care (01) ==
LOC: MADLAB 15:53
PROVIDERS: ATTEND Family Medicine
DX: I48.20 Chronic atrial fibrillation, unspecified (principal)
CPT/HCPCS: 85610

== ENCOUNTER 2021-04-15 19:04 | Emergency (ER) | payer MEDICARE ==
[2021-04-15] MEDS ORDERED: Acetaminophen 500 MG TAB ONE (19:53)
[2021-04-16 17:21] LABS: SARS-CoV-2 PCR by NAA DETECTED (NotDetected)
== END 2021-04-15 21:40 | disposition home or self-care (01) ==
LOC: MADERS 19:04
DX: U07.1 COVID-19 (principal); E66.9 Obesity, unspecified; E78.5 Hyperlipidemia, unspecified; I48.91 Unspecified atrial fibrillation; I11.0 Hypertensive heart disease with heart failure; I50.9 Heart failure, unspecified; F17.220 Nicotine dependence, chewing tobacco, uncomplicated; M10.9 Gout, unspecified
CPT/HCPCS: U0003; U0005; 99283

== ENCOUNTER 2021-04-17 18:39 | Emergency (ER) | payer MEDICARE ==
[2021-04-17] MEDS ORDERED: Amiodarone 150 MG/3 ML VIAL ONE (18:55)
[2021-04-17] MEDS ORDERED: Acetaminophen 500 MG TAB ONE (18:58)
[2021-04-17] MEDS ORDERED: Ibuprofen 800 MG TAB ONE (18:58)
[2021-04-17] MEDS ORDERED: Sodium Chloride 0.9% 1,000 ML ONE ×2 (18:58→20:30)
[2021-04-17 19:31] LABS: #Basophils 0.1 thou/uL (0.0-0.2); #Lymphocytes 0.4 thou/uL (1.20-3.40); #Monocytes 0.6 thou/uL (0.11-0.59); #Neutrophils 9.6 thou/uL (1.40-6.50); %Basophils 0.7 % (0.0-1.0); %Eosinophils 0.1 % (0.0-10.0); %Monocytes 5.6 % (0.0-10.0); %Neutrophils 89.4 % (42.0-75.0); Hemoglobin 13.9 g/dL (14.0-18.0); Mean Corpuscular HGB CONC 30.1 g/dL (32.0-36.0); Mean Corpuscular Hemoglobin 25.8 pg (27.0-31.0); Mean Corpuscular Volume 85.8 fL (78.0-98.0); Mean Platelet Volume 6.4 fL (7.4-10.4); Platelet Count 296 thou/uL (130-400); RBC Distribution Width 15.1 % (11.5-14.5); Red Blood Cell (RBC) Count 5.39 mill/uL (4.70-6.10); White Blood Cell (WBC) Count 10.7 thou/uL (4.8-10.8)
[2021-04-17 19:49] LABS: ALT (SGPT) 13 U/L (8-55); AST (SGOT) 27 U/L (5-34); Albumin 3.3 g/dL (3.4-4.8); Alkaline Phosphatase 84 U/L (40-110); Anion Gap 15 mmol/L (10-20); BUN (Urea Nitrogen) 15 mg/dL (8.4-25.7); Bilirubin, Total 0.7 mg/dL (0.2-1.2); Calc. Creatinine Clearance 0 mL/min (70-130); Calcium 9.9 mg/dL (7.8-10.44); Carbon Dioxide 30 mmol/L (23-31); Chloride 96 mmol/L (98-107); Globulin 3.2 g/dL (2.4-3.5); Glucose 136 mg/dL (83-110); Protein, Total 6.5 g/dL (5.8-8.1); Sodium 138 mmol/L (136-145)
[2021-04-17] MEDS ORDERED: Dexamethasone 10 MG/ML VIAL ONE (20:06)
[2021-04-17 20:08] LABS: Potassium 2.9 mmol/L (3.5-5.1)
[2021-04-17] MEDS ORDERED: Potassium Chloride 20 MEQ TAB ONE (20:30)
== END 2021-04-17 23:52 | disposition short-term general hospital (02) ==
LOC: MADERS 18:39
DX: U07.1 COVID-19 (principal); E87.6 Hypokalemia; I47.2 Ventricular tachycardia; E78.5 Hyperlipidemia, unspecified; I10 Essential (primary) hypertension; F17.220 Nicotine dependence, chewing tobacco, uncomplicated
CPT/HCPCS: 51702; 71045; 80053; 83605; 83880; 84484; 85025; 87040; 93005; 94760; 96374; J0282; J1100; J7050; J7620